=== PATIENT | female | born 1955 | race Two or more races ===

== ENCOUNTER 2024-12-21 14:54 | Inpatient (IN) | payer MEDICARE, OTHER ==
[~2024-12-21] VITALS: Ht 165.1 cm; Wt 94.1 kg
--- NOTE | 2024-12-21 15:14 | ED.PDOC ---
SOB-HPI HPI Comments This is a 69 year old female presenting to the ED with chief complaint of SOB. Patient reports that she has been experiencing SOB with associated wheezing, cough, and substernal chest pressure for the past 3 days due to asphalt being placed on her street in front of her home. Patient denies any dizziness, headache, syncope, hemoptysis, or fever. Chief Complaint: Shortness of Breath Time Seen by MD: 15:11 Reviewed notes: Nurses Notes, Medications, Allergies Information Source: Patient Mode of Arrival: Ambulatory Severity: Moderate Timing: Days Duration: Since onset Context: At Rest PE Risk Factors: None History of: Asthma Prehospital treatment: None Modifying Factors: Nothing Associated Signs and Symptoms: Wheeze, Cough, Chest Pain Quality: Pressure Location: Chest (L), Substernal If cough with SOB: Non-Productive Past Medical History PAST MEDICAL HISTORY: Asthma, Denies Surgical History: Denies all surgeries CUSTOM FRAMING SPECIALIST History: No Pertinent CUSTOM FRAMING SPECIALIST History Family History Family History: Reviewed,noncontributory to illness Social History Lives In: Home Constitutional: denies: chills, diaphoresis, fatigue, fever, malaise, sweats, weakness, others EENTM: denies: blurred vision, double vision, ear bleeding, ear discharge, ear drainage, ear pain, ear ringing, eye pain, eye redness, hearing loss, mouth pain, mouth swelling, nasal discharge, nose bleeding, nose congestion, nose pain, photophobia, tearing, throat pain, throat swelling, voice changes, others Respiratory: reports: cough, shortness of breath, wheezing; denies: hemoptysis, orthopnea, SOB at rest, SOB with excertion, stridor, others Cardiovascular: reports: chest pain; denies: dizzy spells, diaphoresis, Dyspnea on exertion, edema, irregular heart beat, left arm pain, lightheadedness, palpitations, PND, syncope, others Gastrointestinal: denies: abdomen distended, abdominal pain, blood streaked bowels, constipated, diarrhea, dysphagia, difficulty swallowing, hematemesis, melena, nausea, poor appetite, poor fluid intake, rectal bleeding, rectal pain, vomiting, others Genitourinary: denies: abnormal vagina bleeding, burning, dyspareunia, dysuria, flank pain, frequency, hematuria, incontinence, pain, , vagina discharge, urgency, others Neurological: denies: dizziness, fainting, headache, left sided numbness, left sided weakness, numbness, paresthesia, pre-existing deficit, right sided numbness, right sided weakness, seizure, speech problems, tingling, tremors, weakness, others Musculoskeletal: denies: back pain, gout, joint pain, joint swelling, muscle pain, muscle stiffness, neck pain, others Integumetry: denies: bruises, change in color, change in hair/nails, dryness, laceration, lesions, lumps, rash, wounds, others Allergic/Immunocompromised: denies: Difficulty Healing, Frequent Infections, Hives, Itching, others Hematologic/Lymphatic: denies: anemia, blood clots, easy bleeding, easy bruising, swollen glands, others Endocrine: denies: excessive hunger, excessive sweating, excessive thirst, excessive urination, flushing, intolerance to cold, intolerance to heat, unexplained weight gain, unexplained weight loss, others Psychiatric: denies: anxiety, bipolar disorder, depression, hopeless, panic disorder, schizophrenia, sleepless, suicidal, others All Other Systems: Reviewed and Negative Physical Exam General Appearance: No Apparent Distress, Normal HEENT: Normal ENT Inspection, Pharynx Normal, TMs Normal Neck: Full Range of Motion, Non-Tender, Normal, Normal Inspection Respiratory: Chest Non-Tender, Lungs Clear, No Accessory Muscle Use, No Respiratory Distress, Normal Breath Sounds Cardiovascular: No Edema, No JVD, No Murmur, No Gallop, Normal Peripheral Pulses, Regular Rate/Rhythm Breast Exam: Deferred Gastrointestinal: No Organomegaly, Non Tender, No Pulsatile Mass, Normal Bowel Sounds, Soft Genitalia: Deferred Pelvic: Deferred Rectal: Deferred Extremities: No calf tenderness, Normal capillary refill, Normal inspection, Normal range of motion, Non-tender, No pedal edema Musculoskeletal : Apperance: Normal Neurologic: Alert, assistant superintendent II-XII nml as Tested, No Motor Deficits, Normal Affect, Normal Mood, No Sensory Deficits Cerebellar Function: Normal Reflexes: Normal Skin: Dry, Normal Color, Warm Lymphatic: No Adenopathy Was a procedure done? Was a procedure done?: No Differential Dx Differential Diagnosis: Bronchitis, CHF, COPD, Pneumonia, Sinusitis X-Ray, Labs, Meds, VS Vital Signs Date Time Temp Pulse Resp B/P (MAP) Pulse Ox O2 Delivery O2 Flow Rate FiO2 10/8/25 16:00 86 12/21/24 15:40 87 20 97 Room Air* 2 N/A Nasal Cannula* 12/21/24 15:40 97 Nasal Cannula* 2 28 12/21/24 15:40 98.1 86 20 130/89 (103) 97 98.1 12/21/24 15:00 98.3 96 28 170/104 94 98.3 Lab Test 12/21/24 17:07 Range/Units White Blood Count 6.9 4.4-10.8 10^3/uL Red Blood Count 4.33 4.0-5.20 10^6/uL Hemoglobin 14.0 12.2-16.2 g/dL Hematocrit 41.7 36.0-46.0 % Mean Corpuscular Volume 96.2 80.0-100.0 fL Mean Corpuscular Hemoglobin 32.3 H 28.0-32.0 pg Mean Corpuscular Hemoglobin Concent 33.6 32.0-36.0 g/dL Red Cell Distribution Width 13.7 11.8-14.3 % Platelet Count 298 140-450 10^3/uL Mean Platelet Volume 7.7 6.9-10.8 fL Neutrophils (%) (Auto) 56.7 37.0-80.0 % Lymphocytes (%) (Auto) 26.6 10.0-50.0 % Monocytes (%) (Auto) 12.6 H 0.0-12.0 % Eosinophils (%) (Auto) 3.1 0.0-7.0 % Basophils (%) (Auto) 1.0 0.0-2.0 % Neutrophils # (Auto) 3.9 1.6-8.6 10 ^3/uL Lymphocytes # (Auto) 1.8 0.4-5.4 10 ^3/uL Monocytes # (Auto) 0.9 0-1.3 10 ^3/uL Eosinophils # (Auto) 0.2 0-0.8 10 ^3/uL Basophils # (Auto) 0.1 0-0.2 10 ^3/uL Nucleated Red Blood Cells 0.1 % Sodium Level 140 136-145 mmol/L Potassium Level 4.1 3.5-5.1 mmol/L Chloride Level 105 98-107 mmol/L Carbon Dioxide Level 22 20-31 mmol/L Anion Gap 13 5-15 Blood Urea Nitrogen 26 H 9-23 mg/dL Creatinine 0.99 0.550-1.02 mg/dL Glomerular Filtration Rate Calc 62 >90 mL/min BUN/Creatinine Ratio 26.3 H 10.0-20.0 Serum Glucose 96 74-106 mg/dL Calcium Level 9.9 8.7-10.4 mg/dL Troponin I High Sensitivity < 3 L </=34 ng/L Time of 1ST Reevaluation: 16:09 Reevaluation 1ST: Unchanged Patient Education/Counseling: Diagnosis, Treatment Family Education/Counseling: No Family Present SEPSIS Sepsis Screen Date sepsis recognized/suspect: Dec 21, 2024 Time Sepsis recognized/suspect: 1449 Recent Procedure: No On Antibiotic Therapy: No Respiratory Rate >20: Yes Heart Rate >90: Yes Temp<36 C (96.8 F) or >38.3 C: No SBP <90 or MAP <65 mmHG: No New Acute Mental Status Change: No Is the patient on CPAP, BIPAP,: No Physician Orders Urinalysis (12/21/24 15:39) Chest Portable (12/21/24 15:39) Electrocardigram (12/21/24 15:39) Troponin-I Hs (12/21/24 16:39) Troponin-I Hs (12/21/24 18:39) Electrocardigram (12/21/24 16:39) Electrocardigram (12/21/24 18:39) Vital Signs Date Time Temp Pulse Resp B/P (MAP) Pulse Ox O2 Delivery O2 Flow Rate FiO2 12/21/24 16:00 86 12/21/24 15:40 87 20 97 Room Air* 2 N/A Nasal Cannula* 12/21/24 15:40 97 Nasal Cannula* 2 28 12/21/24 15:40 98.1 86 20 130/89 (103) 97 98.1 12/21/24 15:00 98.3 96 28 170/104 94 98.3 Laboratory Tests Test 12/21/24 17:07 White Blood Count 6.9 10^3/uL (4.4-10.8) Departure 1 Departure Time of Disposition: 17:46 (Patient presented with acute shortness of breath concerning for acute on chronic COPD Exacerbation, Pneumonia, ACS, CHF, Pneumothorax. Less likely PE, Dissection. Data: 1. I ordered and reviewed the result of at least 3 labs including a CBC, BMP, and Troponin. 2. I independently interpreted the following tests: Chest X-ray shows benign chest .Risk:This patient has a high risk of morbidity due to further diagnostic testing or treatment and may suffer from respiratory or cardiac etiology . Workup reveals a likely COPD Exacerbation and patient should be admitted for further workup. and possible expert consultation.) Impression: Primary Impression: Acute and chronic respiratory failure Additional Impression: COPD exacerbation Disposition: ADMITTED INPATIENT Admit to: Tele Condition: Guarded Critical Care Note Critical Care Time?: Yes Critical care comment: Acute shortness of breath Authorized and Performed by: Katherine Vargas MD Total critical care time: Approximately 36 minutes Due to a high probability of clinically significant, life threatening deterioration, the patient required my highest level of preparedness to i ntervene emergently and I personally spent this critical care time directly and personally managing the patient. This critical care time included obtaining a history; examining the patient; pulse oximetry; ordering and review of studies; arranging urgent treatment with development of a management plan; evaluation of patient's response to treatment; frequent reassessment; and, discussions with other providers. This critical care time was performed to assess and manage the high probability of imminent, life-threatening deterioration that could result in multi-organ failure. It was exclusive of separately billable procedures and treating other patients and teaching time. Please see my other sections and the rest of the note for further information on patient assessment and treatment. Stability Stability form required: No Heart Score Heart Score: Heart Score Response (Comments) Value History N/A 0 EKG N/A 0 Age N/A 0 Risk Factors N/A 0 Troponin N/A 0 Total 0 I personally scribed for KATHERINE VARGAS MD ([email or web address]) on 12/21/24 at 15:14. Electronically submitted by Rigo Ordonez ([email or web address]). KATHERINE VARGAS MD Dec 21, 2024 15:14
[2024-12-21 15:40] VITALS: PULSE 87; RESP 20; O2SAT 97
--- NOTE | 2024-12-21 16:11 | DVH ---
CHEST RADIOGRAPH Indication: sob Technique: Single frontal view of the chest was obtained Comparison: None FINDINGS: Lines and Tubes: None Lungs: No focal consolidation. Pleura: No effusion. No pneumothorax. Cardiomediastinal contours: Unremarkable Bones: No acute osseous abnormality. IMPRESSION: 1. No acute cardiopulmonary disease.
[2024-12-21 17:22] LABS: Hematocrit 41.7 % (36.0-46.0); Hemoglobin 14.0 g/dL (12.2-16.2); Mean Corpuscular Hemoglobin 32.3 pg (28.0-32.0); Mean Corpuscular Volume 96.2 fL (80.0-100.0); Nucleated Red Blood Cells % 0.1 %
[2024-12-21 17:32] LABS: Chloride 105 mmol/L (98-107); Potassium 4.1 mmol/L (3.5-5.1); Sodium 140 mmol/L (136-145)
[2024-12-21 17:33] LABS: Anion Gap 13 (5-15); Carbon Dioxide 22 mmol/L (20-31)
[2024-12-21 17:34] LABS: Calcium 9.9 mg/dL (8.7-10.4)
[2024-12-21 17:38] LABS: Glucose 96 mg/dL (74-106)
[2024-12-21 17:39] LABS: BUN/Creatinine Ratio 26.3 (10.0-20.0)
[2024-12-21 17:43] LABS: Blood Urea Nitrogen 26 mg/dL (9-23)
[2024-12-21] MEDS: ALBUTEROL SULF 2.5 MG/0.5ML(0.5%) NEB SOLN NEB ONE (18:07)
[2024-12-21] MEDS: IPRATROPIUM BROM 0.5 MG/2.5ML INH SOL NEB ONE (18:07)
[2024-12-21] MEDS: AZITHROMYCIN 250 MG TAB PO ONE (18:12)
[2024-12-21] MEDS: methylPREDNISolone SOD SUCC 125 MG/2 ML VL IV ONE (18:13)
--- NOTE | 2024-12-21 19:24 | ECG ---
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
[2024-12-21 19:26] LABS: Urine Protein, UAD Negative (Negative)
[2024-12-21] MEDS ORDERED: ACETAMINOPHEN 325 MG TAB PO PRN (20:45)
[2024-12-21 22:08] VITALS: BP 126/66; PULSE 93; RESP 19; O2SAT 99
[2024-12-21 22:47] VITALS: BP 120/73; PULSE 88; RESP 19; TEMP 98; O2SAT 97
[2024-12-21 23:10] VITALS: PULSE 88; RESP 19; O2SAT 97
[2024-12-22] VITALS (13 sets, daily range): BP systolic 109–131; BP diastolic 59–73; PULSE 79–89; RESP 16–19; TEMP 87–98.2; O2SAT 93–99
[2024-12-22] MEDS ORDERED: LEVO-848 PO (00:29)
[2024-12-22] MEDS ORDERED: ALBUAER3 IN (00:29)
[2024-12-22] MEDS ORDERED: OMEP20TA PO (00:30)
[2024-12-22] MEDS: IPRATROPIUM BROM 0.5 MG/2.5ML INH SOL NEB PRN (00:51)
[2024-12-22] MEDS: ALBUTEROL SULF 2.5 MG/0.5ML(0.5%) NEB SOLN NEB PRN (00:51)
[2024-12-22] MEDS: NITROGLYCERIN 0.4 MG SL TAB SL PRN (02:51)
--- NOTE | 2024-12-22 02:53 | ECG ---
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
--- NOTE | 2024-12-22 04:12 | DVHHP2 ---
History of Present Illness Reason for Visit: Shortness for breath History of Present Illness 69-year-old female presents for evaluation of shortness for breath. Patient reports a three day history of developing shortness for breath. She states in front of her house there was some repairing done in her street. She states the smell of asphalt made her nauseous with shortness for breath. She reports using her med nebs without relief of the symptoms. Past Medical History Asthma Past Surgical History Denies Family History Noncontributory Smoke: No ALCOHOL: none Drugs: None Lives: with Family Review of Systems Review of Systems Review of systems are currently negative otherwise addressed in HPI. Allergies: Coded Allergies: Penicillins (Verified Allergy, Unknown, 12/21/24) Medications Current Medications Medications Dose Ordered Sig/Judit Route Start Time Stop Time Status Last Admin Dose Admin Nitroglycerin 0.4 mg Q5MINP PRN SL 12/21/24 20:00 12/22/24 02:51 0.4 MG Morphine Sulfate 2 mg Q30M PRN IV 12/21/24 20:30 Albuterol 2.5 mg Q6HPRN PRN NEB 12/21/24 20:45 12/22/24 00:51 2.5 MG Ipratropium [place] 0.5 mg Q6HPRN PRN NEB 12/21/24 20:45 12/22/24 00:51 0.5 MG Methylprednisolone Sodium Succinate 40 mg DAILY IV 12/22/24 10:00 Ondansetron HCl 4 mg Q4HP PRN IV 12/21/24 20:45 Acetaminophen 650 mg Q6HP PRN PO 12/21/24 20:45 Exam Vital Signs Vital Signs Date Time Temp Pulse Resp B/P (MAP) Pulse Ox O2 Delivery O2 Flow Rate FiO2 12/22/24 02:51 117/72 12/22/24 01:00 97.1 84 19 95 97.1 12/22/24 00:51 Nasal Cannula 2.0 12/22/24 00:51 28 Exam Gen: 69-year-old female in mild distress Skin: Warm, dry, normal color and texture, no rash. HEENT: Normocephalic atraumatic, mucous membranes moist and pink. Neck: Cervical and supraclavicular nodes normal without enlargement, trachea is midline, thyroid gland is normal without masses. Pulmonary: Diminished breath sounds bilaterally Cardiac: Regular rate and rhythm. No murmur Abdomen: Soft, nontender, nondistended, bowel sounds present all 4 quadrants, no guarding, no rigidity, no organomegaly. Extremities: No cyanosis, clubbing, no edema Neuro: Cranial nerves II through XII grossly intact, normal affect and speech, no focal motor deficits. Labs/Xrays ORDERING PHYSICIAN: KATHERINE DAVIDSON MD PROCEDURE(s): CXRP - CHEST PORTABLE REASON: sob ORDER NUMBER(s): [id number], ACCESSION NUMBER(s): [id number] CHEST RADIOGRAPH Indication: sob Technique: Single frontal view of the chest was obtained Comparison: None FINDINGS: Lines and Tubes: None Lungs: No focal consolidation. Pleura: No effusion. No pneumothorax. Cardiomediastinal contours: Unremarkable Bones: No acute osseous abnormality. IMPRESSION: 1. No acute cardiopulmonary disease. Labs Test 12/21/24 23:08 12/21/24 18:00 12/21/24 17:07 Range/Units Troponin I High Sensitivity < 3 L </=34 ng/L Urine Color Yellow Yellow Urine Clarity Clear Clear Urine pH 5.5 5.0-9.0 Urine Specific [place] 1.017 1.001-1.035 Urine Protein Negative Negative Urine Ketones Negative Negative Urine Blood Negative Negative /uL Urine Nitrite Negative Negative Urine Bilirubin Negative Negative Urine Urobilinogen Normal Negative mg/dL Urine Leukocyte Esterase Negative Negative /uL Urine RBC None seen 0 - 4 /hpf Urine Microscopic WBC 0-5 /HPF Urine Squamous Epithelial Cells Few <5 /hpf Urine Bacteria None seen None Seen /hpf Urine Glucose Normal Normal mg/dL White Blood Count 6.9 4.4-10.8 10^3/uL Red Blood Count 4.33 4.0-5.20 10^6/uL Hemoglobin 14.0 12.2-16.2 g/dL Hematocrit 41.7 36.0-46.0 % Mean Corpuscular Volume 96.2 80.0-100.0 fL Mean Corpuscular Hemoglobin 32.3 H 28.0-32.0 pg Mean Corpuscular Hemoglobin Concent 33.6 32.0-36.0 g/dL Red Cell Distribution Width 13.7 11.8-14.3 % Platelet Count 298 140-450 10^3/uL Mean Platelet Volume 7.7 6.9-10.8 fL Neutrophils (%) (Auto) 56.7 37.0-80.0 % Lymphocytes (%) (Auto) 26.6 10.0-50.0 % Monocytes (%) (Auto) 12.6 H 0.0-12.0 % Eosinophils (%) (Auto) 3.1 0.0-7.0 % Basophils (%) (Auto) 1.0 0.0-2.0 % Neutrophils # (Auto) 3.9 1.6-8.6 10 ^3/uL Lymphocytes # (Auto) 1.8 0.4-5.4 10 ^3/uL Monocytes # (Auto) 0.9 0-1.3 10 ^3/uL Eosinophils # (Auto) 0.2 0-0.8 10 ^3/uL Basophils # (Auto) 0.1 0-0.2 10 ^3/uL Nucleated Red Blood Cells 0.1 % Sodium Level 140 136-145 mmol/L Potassium Level 4.1 3.5-5.1 mmol/L Chloride Level 105 98-107 mmol/L Carbon Dioxide Level 22 20-31 mmol/L Anion Gap 13 5-15 Blood Urea Nitrogen 26 H 9-23 mg/dL Creatinine 0.99 0.550-1.02 mg/dL Glomerular Filtration Rate Calc 62 >90 mL/min BUN/Creatinine Ratio 26.3 H 10.0-20.0 Serum Glucose 96 74-106 mg/dL Calcium Level 9.9 8.7-10.4 mg/dL SEPSIS Sepsis Screen Date sepsis recognized/suspect: Dec 21, 2024 Time Sepsis recognized/suspect: 1540 Recent Procedure: No On Antibiotic Therapy: No Respiratory Rate >20: No Heart Rate >90: No Temp<36 C (96.8 F) or >38.3 C: No SBP <90 or MAP <65 mmHG: No New Acute Mental Status Change: No Is the patient on CPAP, BIPAP,: No Physician Orders Albuterol Medneb (Ventolin Medneb) (12/21/24 20:45) Ipratropium Medneb (Atrovent Medneb) (12/21/24 20:45) Methylprednisolone Sod Succ (Solu Medrol (12/22/24 10:00) Basic Metabolic Panel (12/22/24 04:00) Regular Diet (12/22/24 Breakfast) Ondansetron Hcl (Zofran) (12/21/24 20:45) Condition: Stable (12/21/24 20:38) Acetaminophen Tablet (Tylenol Tablet) (12/21/24 20:45) Bedrest With Bathroom Privileg (12/21/24 20:38) Electrocardigram (12/22/24 02:22) Electrocardigram (12/22/24 03:22) Vital Signs Date Time Temp Pulse Resp B/P (MAP) Pulse Ox O2 Delivery O2 Flow Rate FiO2 12/22/24 02:51 117/72 12/22/24 01:00 97.1 84 19 130/69 (89) 95 97.1 12/22/24 00:57 89 16 99 12/22/24 00:51 96 Nasal Cannula 2.0 12/22/24 00:51 89 16 96 12/22/24 00:51 96 Nasal Cannula* 2 28 12/21/24 23:10 88 19 97 Nasal Cannula* 2 28 12/21/24 22:47 98.0 88 19 120/73 (89) 97 98.0 12/21/24 22:08 93 19 126/66 99 2.0 12/21/24 21:09 148 12/21/24 21:00 87 24 109/68 (82) 97 Laboratory Tests Test 12/21/24 17:07 White Blood Count 6.9 10^3/uL (4.4-10.8) Medications Medications Dose Ordered Sig/Judit Route Start Time Stop Time Status Last Admin Dose Admin Albuterol 2.5 mg Q6HPRN PRN NEB 12/21/24 20:45 12/22/24 00:51 2.5 MG Albuterol 5 mg ONCE ONCE NEB 12/21/24 18:00 12/21/24 18:01 DC 12/21/24 18:07 5 MG Azithromycin 500 mg ONCE ONCE PO 12/21/24 18:00 12/21/24 18:01 DC 12/21/24 18:12 500 MG Ipratropium [place] 0.5 mg ONCE ONCE NEB 12/21/24 18:00 12/21/24 18:01 DC 12/21/24 18:07 0.5 MG Ipratropium [place] 0.5 mg Q6HPRN PRN NEB 12/21/24 20:45 12/22/24 00:51 0.5 MG Methylprednisolone Sodium Succinate 62.5 mg ONCE ONCE IV 12/21/24 18:00 12/21/24 18:01 DC 12/21/24 18:13 62.5 MG Nitroglycerin 0.4 mg Q5MINP PRN SL 12/21/24 20:00 12/22/24 02:51 0.4 MG Assessment/Plan Assessment/Plan Assessment Acute on chronic hypoxic respiratory failure Asthma exacerbation Plan Admit the patient to telemetry to the hospitalist Lucian hanley Methylprednisone Continue treatment per orders. Plan discussed with: Patient My Orders Orders - MILAGRO PEDRO Procedure Category Date Status Time Admit ADMIT 12/21/24 Transmitted 19:57 Nitroglycerin PHA 12/21/24 In Process Sublingual (Ntrostat 20:00 Stat Ekg For Chest KERRIE 12/21/24 In Process Pain 19:57 Notify Of Changes [facility] 12/21/24 In Process From Base 19:57 Medium Cycle Salesperson For [facility] 12/21/24 In Process 24 Hours 19:57 Emergency Dysrhythmia [facility] 12/21/24 In Process Protocol 19:57 Rhythm Strips Once [facility] 12/21/24 In Process Every Shift 19:57 Oxygen By Nasal RT 12/21/24 Transmitted Cannula 19:57 Morphine Sulfate PHA 12/21/24 In Process Injection 20:30 Albuterol Medneb PHA 12/21/24 In Process (Ventolin Medneb) 20:45 Ipratropium Medneb PHA 12/21/24 In Process (Atrovent Medneb) 20:45 Methylprednisolone PHA 12/22/24 In Process Sod Succ (Solu Medrol 10:00 Basic Metabolic Panel LAB 12/22/24 Logged 04:00 Regular Diet DIET 12/22/24 Transmitted Breakfast Ondansetron Hcl PHA 12/21/24 In Process (Zofran) 20:45 Condition: Stable KERRIE 12/21/24 In Process 20:38 Acetaminophen Tablet PHA 12/21/24 In Process (Tylenol Tablet) 20:45 Bedrest With Bathroom KERRIE 12/21/24 In Process Privileg 20:38 Electrocardigram EKG 12/22/24 Logged 02:22 Electrocardigram EKG 12/22/24 Logged 03:22 Date of Service: Dec 21, 2024 Billing Provider: MILAGRO PEDRO Common Visit Codes: [id number] INP/OBS CARE (HIGH) MILAGRO PEDRO Dec 22, 2024 04:12
--- NOTE | 2024-12-22 06:25 | ECG ---
[facility] Test Date: 2024-12-22 Test Time: 06:23:27 Pat Name: ESTEFANI MCPHERSON [facility] Gender: F Network Admin: [id number] : 1955 Requested By: MILAGRO PEDRO Order Number: [id number] Reading MD: Kareem Chisholm Measurements Intervals [place] Rate: 88 P: 41 CT: 147 QRS: 10 QRSD: 78 T: 30 QT: 362 QTc: 438 Interpretive Statements Sinus rhythm Probable left atrial enlargement Electronically Signed On 12-24-2024 19:45:40 PDT by Kareem Chisholm Please click the below link to view image of tracing.
[2024-12-22] MEDS: MORPHINE SULFATE 4 MG/ML SYR/VIAL IV PRN (06:47)
[2024-12-22 07:13] LABS: Anion Gap 14 (5-15); Carbon Dioxide 20 mmol/L (20-31); Chloride 105 mmol/L (98-107); Potassium 5.0 mmol/L (3.5-5.1); Sodium 139 mmol/L (136-145)
[2024-12-22 07:14] LABS: Calcium 10.0 mg/dL (8.7-10.4)
[2024-12-22 07:19] LABS: BUN/Creatinine Ratio 25.5 (10.0-20.0); Blood Urea Nitrogen 25 mg/dL (9-23); Glucose 136 mg/dL (74-106)
[2024-12-22] MEDS: methylPREDNISolone SOD SUCC 40 MG/ML VL IV SCH ×2 (09:29→21:02)
[2024-12-22] MEDS ORDERED: BUPR-346 PO (09:33)
[2024-12-22] MEDS ORDERED: LISI20TA56 PO (09:33)
[2024-12-22] MEDS ORDERED: NAP500T GT (09:36)
--- NOTE | 2024-12-22 13:03 | DVHPN2 ---
Subjective 69-year-old female who was admitted for acute respiratory failure She has a history of asthma Changes from previous H/P or p: Changes Objective Vitals Vital Signs Date Time Temp Pulse Resp B/P (MAP) Pulse Ox O2 Delivery O2 Flow Rate FiO2 12/22/24 10:46 82 16 98 12/22/24 10:40 Room Air* 0 21 12/22/24 09:24 98.1 124/60 (81) 98.1 Intake/Output Intake and Output 12/22/24 07:00 Intake Total 440 ml Balance 440 ml Intake Oral 440 ml # Voids 1 General Appearance: Alert, Oriented X3, Cooperative Lungs: Other (Bilateral wheezing) Cardiovascular: Regular rate, Normal S1, Normal S2 Abdomen: Normal bowel sounds, Soft, No tenderness Extremities: No edema Medications Current Medications Medications Dose Ordered Sig/Judit Route Start Time Stop Time Status Last Admin Dose Admin Nitroglycerin 0.4 mg Q5MINP PRN SL 12/21/24 20:00 12/22/24 02:51 0.4 MG Morphine Sulfate 2 mg Q30M PRN IV 12/21/24 20:30 12/22/24 06:47 2 MG Albuterol 2.5 mg Q6HPRN PRN NEB 12/21/24 20:45 12/22/24 10:41 2.5 MG Ipratropium [place] 0.5 mg Q6HPRN PRN NEB 12/21/24 20:45 12/22/24 10:41 0.5 MG Methylprednisolone Sodium Succinate 40 mg DAILY IV 12/22/24 10:00 12/22/24 09:29 40 MG Ondansetron HCl 4 mg Q4HP PRN IV 12/21/24 20:45 Acetaminophen 650 mg Q6HP PRN PO 12/21/24 20:45 Laboratory Results Laboratory Tests 12/21/24 17:07 12/22/24 04:50 Chemistry Test 12/21/24 17:07 12/22/24 04:50 Calcium Level 9.9 mg/dL (8.7-10.4) 10.0 mg/dL (8.7-10.4) Urinalysis Test 12/21/24 18:00 Urine Color Yellow (Yellow) Urine Clarity Clear (Clear) Urine pH 5.5 (5.0-9.0) Urine Specific [place] 1.017 (1.001-1.035) Urine Protein Negative (Negative) Urine Ketones Negative (Negative) Urine Blood Negative /uL (Negative) Urine Nitrite Negative (Negative) Urine Bilirubin Negative (Negative) Urine Urobilinogen Normal mg/dL (Negative) Urine Leukocyte Esterase Negative /uL (Negative) Urine RBC None seen /hpf (0 - 4) Urine Microscopic WBC /HPF (0-5) Urine Squamous Epithelial Cells Few /hpf (<5) Urine Bacteria None seen /hpf (None Seen) Urine Glucose Normal mg/dL (Normal) Assessment/Plan Assessment/Plan Acute hypoxic respiratory failure Asthma exacerbation Chronic respiratory failure No home O2 History of asthma No pneumonia Plan Continue IV steroids Add Zithromax IV Oxygen as needed Med neb treatments as needed Full code Plan discussed with: Patient Date of Service: Dec 22, 2024 Billing Provider: KATY RESENDIZ MD Common Visit Codes: NOT BILLABLE KATY RESENDIZ MD Dec 22, 2024 13:03
[2024-12-22] MEDS: AZITHROMYCIN 500MG/ 250ML 250 ML IV ONE (13:15)
[2024-12-22] MEDS: PANTOPRAZOLE 40 MG TAB PO ONE (18:54)
[2024-12-22] MEDS: diphenhydrAMINE HCL 50 MG/1 ML VL IV PRN (21:03)
[2024-12-23] VITALS (10 sets, daily range): BP systolic 123–151; BP diastolic 63–92; PULSE 63–91; RESP 16–20; TEMP 97.7–98.6; O2SAT 95–98
[2024-12-23] MEDS: PANTOPRAZOLE 40 MG TAB PO SCH (05:41)
[2024-12-23] MEDS: AZITHROMYCIN 500MG/ 250ML 250 ML IV SCH (10:00)
[2024-12-23] MEDS ORDERED: NAPROXEN 500 MG TAB PO PRN (16:15)
--- NOTE | 2024-12-23 16:52 | DVHPN2 ---
Subjective Patient is here for acute hypoxic respiratory failure secondary to acute asthma exacerbation Changes from previous H/P or p: No Changes Objective Vitals Vital Signs Date Time Temp Pulse Resp B/P (MAP) Pulse Ox O2 Delivery O2 Flow Rate FiO2 12/23/24 13:00 98.3 75 16 139/71 (93) 98 98.3 12/23/24 08:00 Nasal Cannula* 2 28 Intake/Output Intake and Output 12/23/24 07:00 Intake Total 1455 ml Balance 1455 ml Intake Oral 1455 ml # Voids 11 # Bowel Movements 4 Exam HEENT pupils are reactive Neck is supple CV is S1-S2 regular rate and rhythm Respiratory bilateral expiratory rhonchi GI positive bowel sound Extremity no 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 General Appearance: Alert, Oriented X3, Cooperative Lungs: Other (Bilateral wheezing) Cardiovascular: Regular rate, Normal S1, Normal S2 Abdomen: Normal bowel sounds, Soft, No tenderness Extremities: No edema Medications Current Medications Medications Dose Ordered Sig/Judit Route Start Time Stop Time Status Last Admin Dose Admin Nitroglycerin 0.4 mg Q5MINP PRN SL 12/21/24 20:00 12/22/24 14:41 0.4 MG Morphine Sulfate 2 mg Q30M PRN IV 12/21/24 20:30 12/22/24 06:47 2 MG Albuterol 2.5 mg Q6HPRN PRN NEB 12/21/24 20:45 12/22/24 20:37 2.5 MG Ipratropium [place] 0.5 mg Q6HPRN PRN NEB 12/21/24 20:45 12/22/24 20:37 0.5 MG Ondansetron HCl 4 mg Q4HP PRN IV 12/21/24 20:45 Acetaminophen 650 mg Q6HP PRN PO 12/21/24 20:45 Methylprednisolone Sodium Succinate 40 mg Q12H IV 12/22/24 22:00 12/23/24 10:33 40 MG Azithromycin 250 ml @ 125 mls/hr DAILY IV 12/23/24 10:00 Pantoprazole Sodium 40 mg DAILY@0600 PO 12/23/24 06:00 12/23/24 05:41 40 MG Diphenhydramine HCl 25 mg Q4HP PRN IV 12/22/24 20:30 12/23/24 10:34 25 MG Naproxen 500 mg Q12HP PRN PO 12/23/24 16:15 Laboratory Results Laboratory Tests 12/21/24 17:07 12/22/24 04:50 Urinalysis Test 12/21/24 18:00 Urine Color Yellow (Yellow) Urine Clarity Clear (Clear) Urine pH 5.5 (5.0-9.0) Urine Specific [place] 1.017 (1.001-1.035) Urine Protein Negative (Negative) Urine Ketones Negative (Negative) Urine Blood Negative /uL (Negative) Urine Nitrite Negative (Negative) Urine Bilirubin Negative (Negative) Urine Urobilinogen Normal mg/dL (Negative) Urine Leukocyte Esterase Negative /uL (Negative) Urine RBC None seen /hpf (0 - 4) Urine Microscopic WBC /HPF (0-5) Urine Squamous Epithelial Cells Few /hpf (<5) Urine Bacteria None seen /hpf (None Seen) Urine Glucose Normal mg/dL (Normal) Assessment/Plan Assessment/Plan 69-year-old female with the increasing shortness of breaths for last few days found to have 1. Acute hypoxic respiratory failure secondary to acute asthma exacerbation 2. Acute asthma exacerbation 3. Chest pain secondary to above 4. Morbid obesity classI -pain meds as needed, med nebs, increase Solu-Medrol as patient's has diminished breath sounds with expiratory wheezes on current dose. Plan discussed with: Patient My Orders Orders - FABI LING MD Procedure Category Date Status Time Insert Midline ORDERS 12/23/24 Transmitted 15:19 Naproxen Tablet PHA 12/23/24 In Process (Naprosyn Tablet) 16:15 Methylprednisolone PHA 12/23/24 Logged Sod Succ (Solu Medrol 22:00 Morphine Sulfate PHA 12/23/24 Transmitted Injection 17:00 Hydrocodone-Acet PHA 12/23/24 Transmitted 5/325mg Tab ([place] 17:00 Date of Service: Dec 23, 2024 Billing Provider: FABI LING MD Common Visit Codes: [id number] INP/OBS CARE(HIGH) FABI LING MD Dec 23, 2024 16:52
[2024-12-23] MEDS: HYDROcodone-ACET 5/325MG TAB PO PRN (17:00)
[2024-12-23] MEDS ORDERED: MORPHINE SULFATE 4 MG/ML SYR/VIAL IV PRN (17:00)
[2024-12-23] MEDS: methylPREDNISolone SOD SUCC 125 MG/2 ML VL IV SCH (21:43)
[2024-12-24] VITALS (15 sets, daily range): BP systolic 105–142; BP diastolic 56–83; PULSE 69–89; RESP 16–20; TEMP 97.9–98.5; O2SAT 92–99
--- NOTE | 2024-12-24 18:42 | DVHPN2 ---
Subjective Patient is here for acute hypoxic respiratory failure secondary to acute asthma exacerbation Changes from previous H/P or p: No Changes Objective Vitals Vital Signs Date Time Temp Pulse Resp B/P (MAP) Pulse Ox O2 Delivery O2 Flow Rate FiO2 12/24/24 16:56 98.1 72 18 127/66 (86) 93 98.1 12/24/24 09:41 Room Air 0.0 12/24/24 09:41 21 Intake/Output Intake and Output 12/24/24 07:00 Intake Total 2250 ml Balance 2250 ml Intake Oral 2250 ml # Voids 11 # Bowel Movements 4 Exam HEENT pupils are reactive Neck is supple CV is S1-S2 regular rate and rhythm Respiratory bilateral expiratory rhonchi GI positive bowel sound Extremity no edema 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 General Appearance: Alert, Oriented X3, Cooperative Lungs: Other (Bilateral wheezing) Cardiovascular: Regular rate, Normal S1, Normal S2 Abdomen: Normal bowel sounds, Soft, No tenderness Extremities: No edema Medications Current Medications Medications Dose Ordered Sig/Judit Route Start Time Stop Time Status Last Admin Dose Admin Nitroglycerin 0.4 mg Q5MINP PRN SL 12/21/24 20:00 12/22/24 14:41 0.4 MG Morphine Sulfate 2 mg Q30M PRN IV 12/21/24 20:30 12/22/24 06:47 2 MG Albuterol 2.5 mg Q6HPRN PRN NEB 12/21/24 20:45 12/24/24 09:41 2.5 MG Ipratropium [place] 0.5 mg Q6HPRN PRN NEB 12/21/24 20:45 12/24/24 09:41 0.5 MG Ondansetron HCl 4 mg Q4HP PRN IV 12/21/24 20:45 Acetaminophen 650 mg Q6HP PRN PO 12/21/24 20:45 Azithromycin 250 ml @ 125 mls/hr DAILY IV 12/23/24 10:00 12/24/24 10:16 125 MLS/HR Pantoprazole Sodium 40 mg DAILY@0600 PO 12/23/24 06:00 12/24/24 05:49 40 MG Diphenhydramine HCl 25 mg Q4HP PRN IV 12/22/24 20:30 12/24/24 10:16 25 MG Naproxen 500 mg Q12HP PRN PO 12/23/24 16:15 Methylprednisolone Sodium Succinate 60 mg Q8HR IV 12/23/24 22:00 12/24/24 14:55 60 MG Morphine Sulfate 2 mg Q4HR PRN IV 12/23/24 17:00 Acetaminophen/ Hydrocodone Bitart 1 tab Q4HPRN PRN PO 12/23/24 17:00 12/24/24 16:01 1 TAB Laboratory Results Laboratory Tests 12/21/24 17:07 12/22/24 04:50 Urinalysis Test 12/21/24 18:00 Urine Color Yellow (Yellow) Urine Clarity Clear (Clear) Urine pH 5.5 (5.0-9.0) Urine Specific [place] 1.017 (1.001-1.035) Urine Protein Negative (Negative) Urine Ketones Negative (Negative) Urine Blood Negative /uL (Negative) Urine Nitrite Negative (Negative) Urine Bilirubin Negative (Negative) Urine Urobilinogen Normal mg/dL (Negative) Urine Leukocyte Esterase Negative /uL (Negative) Urine RBC None seen /hpf (0 - 4) Urine Microscopic WBC /HPF (0-5) Urine Squamous Epithelial Cells Few /hpf (<5) Urine Bacteria None seen /hpf (None Seen) Urine Glucose Normal mg/dL (Normal) Assessment/Plan Assessment/Plan 69-year-old female with the increasing shortness of breaths for last few days found to have 1. Acute hypoxic respiratory failure secondary to acute asthma exacerbation 2. Acute asthma exacerbation 3. Chest pain secondary to above 4. Morbid obesity classI -pain meds as needed, med nebs, increase Solu-Medrol as patient's has diminished breath sounds with expiratory wheezes . Plan discussed with: Patient Date of Service: Dec 24, 2024 Billing Provider: FABI LING MD Common Visit Codes: [id number] INP/OBS CARE(HIGH) FABI LING MD Dec 24, 2024 18:42
[2024-12-25] VITALS (13 sets, daily range): BP systolic 101–159; BP diastolic 56–76; PULSE 63–93; RESP 16–20; TEMP 97.7–98.6; O2SAT 90–99
--- NOTE | 2024-12-25 14:17 | DVH ---
CHEST RADIOGRAPH Indication: re-evaluation due to coarse lung sounds Technique: Single frontal view of the chest was obtained Comparison: XY CHEST PORTABLE on DOS: 12/21/24 FINDINGS: Lines and Tubes: None Lungs: No focal consolidation. Pleura: No effusion. No pneumothorax. Cardiomediastinal contours: Unremarkable Bones: No acute osseous abnormality. IMPRESSION: 1. No acute cardiopulmonary disease. 2. No significant change from 12/21/2024.
--- NOTE | 2024-12-25 18:16 | DVHPN2 ---
Subjective Patient is here for acute hypoxic respiratory failure secondary to acute asthma exacerbation Changes from previous H/P or p: No Changes Objective Vitals Vital Signs Date Time Temp Pulse Resp B/P (MAP) Pulse Ox O2 Delivery O2 Flow Rate FiO2 12/25/24 16:43 98.5 72 18 159/65 (96) 90 98.5 12/25/24 08:12 Nasal Cannula* 3 32 Intake/Output Intake and Output 12/25/24 07:00 Intake Total 1990 ml Balance 1990 ml Intake Oral 1740 ml IV Total 250 ml # Voids 14 # Bowel Movements 4 Exam HEENT pupils are reactive Neck is supple CV is S1-S2 regular rate and rhythm Respiratory bilateral expiratory rhonchi GI positive bowel sound 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 General Appearance: Alert, Oriented X3, Cooperative Lungs: Other (Bilateral wheezing) Cardiovascular: Regular rate, Normal S1, Normal S2 Abdomen: Normal bowel sounds, Soft, No tenderness Extremities: No edema Medications Current Medications Medications Dose Ordered Sig/Judit Route Start Time Stop Time Status Last Admin Dose Admin Nitroglycerin 0.4 mg Q5MINP PRN SL 12/21/24 20:00 12/22/24 14:41 0.4 MG Morphine Sulfate 2 mg Q30M PRN IV 12/21/24 20:30 12/22/24 06:47 2 MG Albuterol 2.5 mg Q6HPRN PRN NEB 12/21/24 20:45 12/25/24 06:40 2.5 MG Ipratropium [place] 0.5 mg Q6HPRN PRN NEB 12/21/24 20:45 12/25/24 06:27 0.5 MG Ondansetron HCl 4 mg Q4HP PRN IV 12/21/24 20:45 Acetaminophen 650 mg Q6HP PRN PO 12/21/24 20:45 Azithromycin 250 ml @ 125 mls/hr DAILY IV 12/23/24 10:00 12/25/24 09:20 125 MLS/HR Pantoprazole Sodium 40 mg DAILY@0600 PO 12/23/24 06:00 12/25/24 05:35 40 MG Diphenhydramine HCl 25 mg Q4HP PRN IV 12/22/24 20:30 12/25/24 13:59 25 MG Naproxen 500 mg Q12HP PRN PO 12/23/24 16:15 Methylprednisolone Sodium Succinate 60 mg Q8HR IV 12/23/24 22:00 12/25/24 13:59 60 MG Morphine Sulfate 2 mg Q4HR PRN IV 12/23/24 17:00 Acetaminophen/ Hydrocodone Bitart 1 tab Q4HPRN PRN PO 12/23/24 17:00 12/25/24 17:28 1 TAB Budesonide 0.5 mg BID NEB 12/25/24 22:00 Levothyroxine Sodium 50 mcg QAM@0600 PO 12/26/24 06:00 Laboratory Results Laboratory Tests 12/21/24 17:07 12/22/24 04:50 Urinalysis Test 12/21/24 18:00 Urine Color Yellow (Yellow) Urine Clarity Clear (Clear) Urine pH 5.5 (5.0-9.0) Urine Specific [place] 1.017 (1.001-1.035) Urine Protein Negative (Negative) Urine Ketones Negative (Negative) Urine Blood Negative /uL (Negative) Urine Nitrite Negative (Negative) Urine Bilirubin Negative (Negative) Urine Urobilinogen Normal mg/dL (Negative) Urine Leukocyte Esterase Negative /uL (Negative) Urine RBC None seen /hpf (0 - 4) Urine Microscopic WBC /HPF (0-5) Urine Squamous Epithelial Cells Few /hpf (<5) Urine Bacteria None seen /hpf (None Seen) Urine Glucose Normal mg/dL (Normal) Assessment/Plan Assessment/Plan 69-year-old female with the increasing shortness of breaths for last few days found to have 1. Acute hypoxic respiratory failure secondary to acute asthma exacerbation 2. Acute asthma exacerbation 3. Chest pain secondary to above 4. Morbid obesity classI 5. Hypothyroidism, resume levothyroxine -pain meds as needed, med nebs, increase Solu-Medrol as patient's has diminished breath sounds with expiratory wheezes . -add Pulmicort Plan discussed with: Patient My Orders Orders - FABI LING MD Procedure Category Date Status Time Chest Xray 1 View XY 12/25/24 Resulted 11:04 Budesonide PHA 12/25/24 In Process (Inhalation) 22:00 Levothyroxine Tablet PHA 12/26/24 In Process (Synthroid Tablet) 06:00 Date of Service: Dec 25, 2024 Billing Provider: FABI LING MD Common Visit Codes: [id number] INP/OBS CARE(HIGH) FABI LING MD Dec 25, 2024 18:16
[2024-12-25] MEDS: LEVOTHYROXINE SODIUM 50 MCG TAB PO ONE (18:42)
[2024-12-25] MEDS: BUDESONIDE (INHALATION) 0.5 MG/2 ML NEB NEB SCH (19:06)
[2024-12-26] VITALS (13 sets, daily range): BP systolic 119–149; BP diastolic 58–81; PULSE 63–87; RESP 14–20; TEMP 97.8–98.4; O2SAT 92–99
[2024-12-26] MEDS: LEVOTHYROXINE SODIUM 50 MCG TAB PO SCH (05:38)
--- NOTE | 2024-12-26 16:52 | DVHPN2 ---
Subjective Patient is here for acute hypoxic respiratory failure secondary to acute asthma exacerbation Changes from previous H/P or p: No Changes Objective Vitals Vital Signs Date Time Temp Pulse Resp B/P (MAP) Pulse Ox O2 Delivery O2 Flow Rate FiO2 12/26/24 13:00 98.1 77 16 122/58 (79) 95 98.1 12/26/24 10:28 Nasal Cannula* 2 28 Intake/Output Intake and Output 12/26/24 07:00 Intake Total 3000 ml Output Total 1500 ml Balance 1500 ml Intake Oral 3000 ml Output Urine Total 1500 ml # Voids 6 # Bowel Movements 6 Exam HEENT pupils are reactive Neck is supple CV is S1-S2 regular rate and rhythm Respiratory bilateral expiratory rhonchi GI positive bowel sound 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 General Appearance: Alert, Oriented X3, Cooperative Lungs: Other (Bilateral wheezing) Cardiovascular: Regular rate, Normal S1, Normal S2 Abdomen: Normal bowel sounds, Soft, No tenderness Extremities: No edema Medications Current Medications Medications Dose Ordered Sig/Judit Route Start Time Stop Time Status Last Admin Dose Admin Nitroglycerin 0.4 mg Q5MINP PRN SL 12/21/24 20:00 12/22/24 14:41 0.4 MG Morphine Sulfate 2 mg Q30M PRN IV 12/21/24 20:30 12/22/24 06:47 2 MG Albuterol 2.5 mg Q6HPRN PRN NEB 12/21/24 20:45 12/26/24 10:24 2.5 MG Ipratropium [place] 0.5 mg Q6HPRN PRN NEB 12/21/24 20:45 12/26/24 10:24 0.5 MG Ondansetron HCl 4 mg Q4HP PRN IV 12/21/24 20:45 Acetaminophen 650 mg Q6HP PRN PO 12/21/24 20:45 Azithromycin 250 ml @ 125 mls/hr DAILY IV 12/23/24 10:00 12/26/24 10:28 125 MLS/HR Pantoprazole Sodium 40 mg DAILY@0600 PO 12/23/24 06:00 12/26/24 05:38 40 MG Diphenhydramine HCl 25 mg Q4HP PRN IV 12/22/24 20:30 12/26/24 15:27 25 MG Naproxen 500 mg Q12HP PRN PO 12/23/24 16:15 Methylprednisolone Sodium Succinate 60 mg Q8HR IV 12/23/24 22:00 12/26/24 15:28 60 MG Morphine Sulfate 2 mg Q4HR PRN IV 12/23/24 17:00 Acetaminophen/ Hydrocodone Bitart 1 tab Q4HPRN PRN PO 12/23/24 17:00 12/26/24 09:19 1 TAB Budesonide 0.5 mg BID NEB 12/25/24 22:00 12/26/24 10:24 0.5 MG Levothyroxine Sodium 50 mcg QAM@0600 PO 12/26/24 06:00 12/26/24 05:38 50 MCG Laboratory Results Laboratory Tests 12/21/24 17:07 12/22/24 04:50 Urinalysis Test 12/21/24 18:00 Urine Color Yellow (Yellow) Urine Clarity Clear (Clear) Urine pH 5.5 (5.0-9.0) Urine Specific [place] 1.017 (1.001-1.035) Urine Protein Negative (Negative) Urine Ketones Negative (Negative) Urine Blood Negative /uL (Negative) Urine Nitrite Negative (Negative) Urine Bilirubin Negative (Negative) Urine Urobilinogen Normal mg/dL (Negative) Urine Leukocyte Esterase Negative /uL (Negative) Urine RBC None seen /hpf (0 - 4) Urine Microscopic WBC /HPF (0-5) Urine Squamous Epithelial Cells Few /hpf (<5) Urine Bacteria None seen /hpf (None Seen) Urine Glucose Normal mg/dL (Normal) Assessment/Plan Assessment/Plan 69-year-old female with the increasing shortness of breaths for last few days found to have 1. Acute hypoxic respiratory failure secondary to acute asthma exacerbation 2. Acute asthma exacerbation 3. Chest pain secondary to above 4. Morbid obesity classI 5. Hypothyroidism, resume levothyroxine -pain meds as needed, med nebs, increase Solu-Medrol as patient's has diminished breath sounds with expiratory wheezes . -add Pulmicort Plan discussed with: Patient My Orders Orders - FABI LING MD Procedure Category Date Status Time Levothyroxine Tablet PHA 12/26/24 In Process (Synthroid Tablet) 06:00 * Line Person CONS 12/26/24 Transmitted Consult 09:05 Date of Service: Dec 26, 2024 Billing Provider: FABI LING MD Common Visit Codes: [id number] INP/OBS CARE(HIGH) FABI LING MD Dec 26, 2024 16:52
[2024-12-27] VITALS (13 sets, daily range): BP systolic 139–152; BP diastolic 66–87; PULSE 63–131; RESP 16–23; TEMP 97.6–98.8; O2SAT 93–100
--- NOTE | 2024-12-27 08:07 | ECG ---
[facility] Test Date: 2024-12-21 Test Time: 21:09:08 Pat Name: ESTEFANI MCPHERSON [facility] Director Gift: KATT : 1955 Requested By: KATHERINE DAVIDSON Order Number: [id number] Reading MD: Kareem Chisholm Measurements Intervals [place] Rate: 148 P: 0 VT: 0 QRS: 23 QRSD: 72 T: 18 QT: 310 QTc: 487 Interpretive Statements Atrial fibrillation Low voltage, precordial leads ST depression, probably rate related Borderline prolonged QT interval Electronically Signed On 12-27-2024 15:07:06 PDT by Kareem Chisholm Please click the below link to view image of tracing.
--- NOTE | 2024-12-27 18:45 | DVHPN2 ---
Subjective Patient is here for acute hypoxic respiratory failure secondary to acute asthma exacerbation Changes from previous H/P or p: No Changes Objective Vitals Vital Signs Date Time Temp Pulse Resp B/P (MAP) Pulse Ox O2 Delivery O2 Flow Rate FiO2 12/27/24 16:49 98.7 82 18 139/85 (103) 94 98.7 12/27/24 15:01 Room Air* 0 21 Intake/Output Intake and Output 12/27/24 07:00 Intake Total 2450 ml Balance 2450 ml Intake Oral 2200 ml IV Total 250 ml # Voids 8 # Bowel Movements 2 Exam HEENT pupils are reactive Neck is supple CV is S1-S2 regular rate and rhythm Respiratory bilateral expiratory rhonchi GI positive bowel sound 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 General Appearance: Alert, Oriented X3, Cooperative Lungs: Other (Bilateral wheezing) Cardiovascular: Regular rate, Normal S1, Normal S2 Abdomen: Normal bowel sounds, Soft, No tenderness Extremities: No edema Medications Current Medications Medications Dose Ordered Sig/Judit Route Start Time Stop Time Status Last Admin Dose Admin Nitroglycerin 0.4 mg Q5MINP PRN SL 12/21/24 20:00 12/22/24 14:41 0.4 MG Morphine Sulfate 2 mg Q30M PRN IV 12/21/24 20:30 12/22/24 06:47 2 MG Albuterol 2.5 mg Q6HPRN PRN NEB 12/21/24 20:45 12/27/24 15:00 2.5 MG Ipratropium [place] 0.5 mg Q6HPRN PRN NEB 12/21/24 20:45 12/27/24 15:00 0.5 MG Ondansetron HCl 4 mg Q4HP PRN IV 12/21/24 20:45 Acetaminophen 650 mg Q6HP PRN PO 12/21/24 20:45 Azithromycin 250 ml @ 125 mls/hr DAILY IV 12/23/24 10:00 12/27/24 09:45 125 MLS/HR Pantoprazole Sodium 40 mg DAILY@0600 PO 12/23/24 06:00 12/27/24 05:19 40 MG Diphenhydramine HCl 25 mg Q4HP PRN IV 12/22/24 20:30 12/27/24 09:45 25 MG Naproxen 500 mg Q12HP PRN PO 12/23/24 16:15 Methylprednisolone Sodium Succinate 60 mg Q8HR IV 12/23/24 22:00 12/27/24 05:19 60 MG Morphine Sulfate 2 mg Q4HR PRN IV 12/23/24 17:00 Acetaminophen/ Hydrocodone Bitart 1 tab Q4HPRN PRN PO 12/23/24 17:00 12/27/24 09:45 1 TAB Budesonide 0.5 mg BID NEB 12/25/24 22:00 12/27/24 06:39 0.5 MG Levothyroxine Sodium 50 mcg QAM@0600 PO 12/26/24 06:00 12/27/24 05:19 50 MCG Laboratory Results Laboratory Tests 12/21/24 17:07 12/22/24 04:50 Urinalysis Test 12/21/24 18:00 Urine Color Yellow (Yellow) Urine Clarity Clear (Clear) Urine pH 5.5 (5.0-9.0) Urine Specific [place] 1.017 (1.001-1.035) Urine Protein Negative (Negative) Urine Ketones Negative (Negative) Urine Blood Negative /uL (Negative) Urine Nitrite Negative (Negative) Urine Bilirubin Negative (Negative) Urine Urobilinogen Normal mg/dL (Negative) Urine Leukocyte Esterase Negative /uL (Negative) Urine RBC None seen /hpf (0 - 4) Urine Microscopic WBC /HPF (0-5) Urine Squamous Epithelial Cells Few /hpf (<5) Urine Bacteria None seen /hpf (None Seen) Urine Glucose Normal mg/dL (Normal) Assessment/Plan Assessment/Plan 69-year-old female with the increasing shortness of breaths for last few days found to have 1. Acute hypoxic respiratory failure secondary to acute asthma exacerbation 2. Acute asthma exacerbation 3. Chest pain secondary to above 4. Morbid obesity classI 5. Hypothyroidism, resume levothyroxine -pain meds as needed, med nebs, increase Solu-Medrol as patient's has diminished breath sounds with expiratory wheezes . -continue Pulmicort, discharge plan in next 24-48 hours. Plan discussed with: Patient Date of Service: Dec 27, 2024 Billing Provider: FABI LING MD Common Visit Codes: [id number] INP/OBS CARE(HIGH) FABI LING MD Dec 27, 2024 18:45
[2024-12-28] VITALS (13 sets, daily range): BP systolic 112–129; BP diastolic 58–86; PULSE 62–90; RESP 16–24; TEMP 98–98.4; O2SAT 91–98
--- NOTE | 2024-12-28 03:42 | ECG ---
[facility] Test Date: 2024-12-28 Test Time: 03:40:18 Pat Name: ESTEFANI MCPHERSON [facility] F Recruiting Assistant: [email or web address] : 1955 Requested By: FABI LING Order Number: [id number] Reading MD: Kareem Chisholm Measurements Intervals [place] Rate: 132 P: 0 [place]: 0 QRS: 46 QRSD: 82 T: 56 QT: 310 QTc: 460 Interpretive Statements Atrial fibrillation Ventricular premature complex Nonspecific ST depression Electronically Signed On 12-28-2024 9:07:29 PDT by Kareem Chisholm Please click the below link to view image of tracing.
[2024-12-28] MEDS: dilTIAZem 25 MG/5 ML VIAL IV ONE (04:37)
--- NOTE | 2024-12-28 07:59 | ECG ---
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
--- NOTE | 2024-12-28 09:27 | DVHINCON2 ---
Date Seen: Dec 28, 2024 Referring Physician BRISEIDA Rogers Reason for Consultation Afib History of Present Illness This is a 69-year-old female patient who presents to the emergency room with chief complaint of worsening shortness of breath. The patient reports that she has an underlying history of asthma and that asphalt was recently laid on her driveway. She reports that ever since the asphalt was laid, she has been feeling short of breath and has had wheezing lung sounds. She came to the hospital for further evaluation. Cardiology has been consulted at this time for atrial fibrillation. Initial twelve lead electrocardiogram revealed atrial fibrillation with rapid ventricular response. At the time of assessment, the patient is in a normal sinus rhythm with frequent PVCs. Patient noted to have intermittent episodes of atrial fibrillation with rapid ventricular response on potline monitor. At the time of assessment, the patient denies any cardiac symptoms such as chest pain, palpitations, shortness of breath, or dizziness. Serial troponin levels drawn during this admission have been negative. Significant past medical history includes hypertension, asthma, thyroid disease, hepatitis-C, and obesity. The patient reports that she has been scheduled for an upcoming initial cardiology visit in the outpatient setting because she noted that she was having frequent palpitations at home over the last few months. Past Medical History Past medical history reviewed. No other significant than mentioned above. Past Surgical History Tonsillectomy Family History: Hypertension G8 MOTHER, , Age: 90 Family History Family history reviewed. Social History Denies the use of tobacco, alcohol or illicit drugs. Allergies: Coded Allergies: Penicillins (Verified Allergy, Unknown, 12/21/24) Home Meds Reported Medications Naproxen (NAPROSYN TABLET) 500 Mg Tb, 500 MG GT, TAB 12/22/24 Bupropion Hcl (Bupropion Hcl) 100 Mg Tab, 100 MG PO Q8HR for 30 Days, MG 12/22/24 Lisinopril (Lisinopril) 20 Mg Tab, 20 MG PO, TAB 12/22/24 Omeprazole (Gnp Omeprazole) 20 Mg Tab, 1 TAB PO DAILY, #90 TAB 1 Refill 12/22/24 Levothyroxine Sodium (SYNTHROID TABLET) 50 Mcg Tb, 1 TAB PO DAILY, #30 TAB 5 R efills 12/22/24 Albuterol Sulfate (VENTOLIN MDI) 90 Mcg Ih, 90 MCG IN, INH 12/22/24 Home Meds Home medications reviewed. Review of Systems Constitutional: No symptom reported Ears, Nose, & Throat: No symptom reported Eyes: No symptom reported Neurological: No symptoms reported Pulmonary/Respiratory: Shortness of breath Cardiovascular: No symptom reported Gastrointestinal: No symptom reported Genitourinary: No symptom reported Musculoskeletal: No symptom reported Skin: No symptom reported Psychiatric: No symptom reported Endocrine: No symptom reported Hematologic/Lymphatic: No symptom reported Vital Signs Vital Signs Date Time Temp Pulse Resp B/P (MAP) Pulse Ox O2 Delivery O2 Flow Rate FiO2 12/28/24 09:00 98.0 83 18 119/68 (85) 95 98.0 12/28/24 07:11 Room Air 0.0 12/28/24 07:11 21 Physical Exam General Appearance: Cooperative. Obese Pulmonary/Respiratory: Clear, bilateral breaths sounds. Cardiovascular/Chest: Regular rate and rhythm. Peripheral Pulses: 2+ Radial (R). 2+ Radial (L). 2+ Pedal (R). 2+ Pedal (L) Abdominal Exam: Normal bowel sounds. Ankle Exam: Negative ankle edema Lower extremities: Negative lower extremity edema Neuro/Mental Status: A/OX4, coherent. Thoughts/Psych: Normal thought pattern. Appropriate mood and affect. Good judgment and insight. Appearance: No acute distress. Skin Exam: Normal inspection. Normal color. Warm and dry. Labs/Diagnostic Data Labs Test 12/22/24 04:50 12/21/24 23:08 12/21/24 18:00 12/21/24 17:07 Range/Units Sodium Level 139 136-145 mmol/L Potassium Level 5.0 3.5-5.1 mmol/L Chloride Level 105 98-107 mmol/L Carbon Dioxide Level 20 20-31 mmol/L Anion Gap 14 5-15 Blood Urea Nitrogen 25 H 9-23 mg/dL Creatinine 0.98 0.550-1.02 mg/dL Glomerular Filtration Rate Calc 63 >90 mL/min BUN/Creatinine Ratio 25.5 H 10.0-20.0 Serum Glucose 136 H 74-106 mg/dL Calcium Level 10.0 8.7-10.4 mg/dL Troponin I High Sensitivity < 3 L </=34 ng/L Urine Color Yellow Yellow Urine Clarity Clear Clear Urine pH 5.5 5.0-9.0 Urine Specific [place] 1.017 1.001-1.035 Urine Protein Negative Negative Urine Ketones Negative Negative Urine Blood Negative Negative /uL Urine Nitrite Negative Negative Urine Bilirubin Negative Negative Urine Urobilinogen Normal Negative mg/dL Urine Leukocyte Esterase Negative Negative /uL Urine RBC None seen 0 - 4 /hpf Urine Microscopic WBC 0-5 /HPF Urine Squamous Epithelial Cells Few <5 /hpf Urine Bacteria None seen None Seen /hpf Urine Glucose Normal Normal mg/dL White Blood Count 6.9 4.4-10.8 10^3/uL Red Blood Count 4.33 4.0-5.20 10^6/uL Hemoglobin 14.0 12.2-16.2 g/dL Hematocrit 41.7 36.0-46.0 % Mean Corpuscular Volume 96.2 80.0-100.0 fL Mean Corpuscular Hemoglobin 32.3 H 28.0-32.0 pg Mean Corpuscular Hemoglobin Concent 33.6 32.0-36.0 g/dL Red Cell Distribution Width 13.7 11.8-14.3 % Platelet Count 298 140-450 10^3/uL Mean Platelet Volume 7.7 6.9-10.8 fL Neutrophils (%) (Auto) 56.7 37.0-80.0 % Lymphocytes (%) (Auto) 26.6 10.0-50.0 % Monocytes (%) (Auto) 12.6 H 0.0-12.0 % Eosinophils (%) (Auto) 3.1 0.0-7.0 % Basophils (%) (Auto) 1.0 0.0-2.0 % Neutrophils # (Auto) 3.9 1.6-8.6 10 ^3/uL Lymphocytes # (Auto) 1.8 0.4-5.4 10 ^3/uL Monocytes # (Auto) 0.9 0-1.3 10 ^3/uL Eosinophils # (Auto) 0.2 0-0.8 10 ^3/uL Basophils # (Auto) 0.1 0-0.2 10 ^3/uL Nucleated Red Blood Cells 0.1 % Assessment Atrial fibrillation with a rapid ventricular rate, newly diagnosed, now normal sinus rhythm Rule out structural heart disease Hypertension Asthma exacerbation Thyroid disease Obesity Plan/Recommendation We will continue with the following plan/recommendations (Dr. Chisholm): * Transthoracic echocardiogram to evaluate cardiac function * ?[id number] VASc score: 3 points, HAS-BLED score: 1 point * Initiate therapeutic Lovenox while inpatient, transition to DOAC prior to discharge * Initiate beta-kojo for rate control * Consider antiarrhythmic agent * Monitor and replete electrolytes as needed, keep potassium greater than four and magnesium greater than two * Close cardiac surveillance Thank you for allowing us to care for this patient. Please call with any questions or concerns. Critical care time spent: 44 minutes This medical document was created using an electronic medical record system with voice recognition software and computerized dictation system. Although this document has been carefully reviewed, there might still be some phonetic and typographical errors. Occasional wrong-word or ``sound-alike substitutions may have occurred due to the inherent limitations of voice recognition software. These areas are purely typographical due to imperfections of the software programs and do not reflect any compromise in the patient's medical care. Please read the chart carefully and recognize, using context, where these substitutions have occurred. Plan discussed with: Patient NYHA Physical activity limitations: NA Date of Service: Dec 28, 2024 Billing Provider: NEDA PALOMINO Cardiology Common Codes: [id number] INP/OBS CARE (High) Cardiology Consultation Codes: [id number] CONSULT <45MIN NEDA PALOMINO Dec 28, 2024 09:27
[2024-12-28] MEDS: METOPROLOL TARTRATE 25 MG TAB PO ONE (13:57)
[2024-12-28 14:10] LABS: Hematocrit 39.9 % (36.0-46.0); Hemoglobin 13.1 g/dL (12.2-16.2); Mean Corpuscular Hemoglobin 31.4 pg (28.0-32.0); Mean Corpuscular Volume 95.7 fL (80.0-100.0)
[2024-12-28 14:13] LABS: Chloride 105 mmol/L (98-107); Potassium 4.9 mmol/L (3.5-5.1); Sodium 138 mmol/L (136-145)
[2024-12-28 14:14] LABS: Anion Gap 10 (5-15); Calcium 8.8 mg/dL (8.7-10.4); Carbon Dioxide 23 mmol/L (20-31)
[2024-12-28 14:19] LABS: BUN/Creatinine Ratio 29.1 (10.0-20.0); Blood Urea Nitrogen 32 mg/dL (9-23); Glucose 254 mg/dL (74-106); Triglycerides 246 mg/dL (< 150)
[2024-12-28 14:20] LABS: Magnesium 2.1 mg/dL (1.6-2.6)
[2024-12-28 14:21] LABS: Cholesterol 177 mg/dL (< 200); HDL Cholesterol 64 mg/dL (40-59)
[2024-12-28 14:40] LABS: Smudge Cells 3 /100 WBC; Total Cells Counted 100.0 (100)
[2024-12-28] MEDS: ENOXAPARIN SOD 100 MG/1 ML SYRINGE SC ONE (14:40)
[2024-12-28 16:34] LABS: Free T3 2.11 pg/mL (2.3-4.2)
[2024-12-28 16:35] LABS: Free T4 (Free Thyroxine) 1.19 ng/dL (0.89-1.76)
--- NOTE | 2024-12-28 16:54 | DVHPN2 ---
Subjective Patient is here for acute hypoxic respiratory failure secondary to acute asthma exacerbation. Overnight events noted patient went into AFib with a RVR currently on therapeutic Lovenox. 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 General Appearance: Alert, Oriented X3, Cooperative Lungs: Other (Bilateral wheezing) Cardiovascular: Regular rate, Normal S1, Normal S2 Abdomen: Normal bowel sounds, Soft, No tenderness Extremities: No edema Medications Current Medications Medications Dose Ordered Sig/Judit Route Start Time Stop Time Status Last Admin Dose Admin Nitroglycerin 0.4 mg Q5MINP PRN SL 12/21/24 20:00 12/22/24 14:41 0.4 MG Morphine Sulfate 2 mg Q30M PRN IV 12/21/24 20:30 12/22/24 06:47 2 MG Albuterol 2.5 mg Q6HPRN PRN NEB 12/21/24 20:45 12/28/24 07:11 2.5 MG Ipratropium [place] 0.5 mg Q6HPRN PRN NEB 12/21/24 20:45 12/28/24 07:11 0.5 MG Ondansetron HCl 4 mg Q4HP PRN IV 12/21/24 20:45 Acetaminophen 650 mg Q6HP PRN PO 12/21/24 20:45 Azithromycin 250 ml @ 125 mls/hr DAILY IV 12/23/24 10:00 12/28/24 09:37 125 MLS/HR Pantoprazole Sodium 40 mg DAILY@0600 PO 12/23/24 06:00 12/28/24 06:07 40 MG Diphenhydramine HCl 25 mg Q4HP PRN IV 12/22/24 20:30 12/28/24 14:03 25 MG Naproxen 500 mg Q12HP PRN PO 12/23/24 16:15 Methylprednisolone Sodium Succinate 60 mg Q8HR IV 12/23/24 22:00 12/28/24 14:04 60 MG Morphine Sulfate 2 mg Q4HR PRN IV 12/23/24 17:00 Acetaminophen/ Hydrocodone Bitart 1 tab Q4HPRN PRN PO 12/23/24 17:00 12/28/24 14:13 1 TAB Budesonide 0.5 mg BID NEB 12/25/24 22:00 12/28/24 07:11 0.5 MG Levothyroxine Sodium 50 mcg QAM@0600 PO 12/26/24 06:00 12/28/24 06:07 50 MCG Enoxaparin Sodium 100 mg Q12HR SC 12/28/24 22:00 Metoprolol Tartrate 25 mg BID PO 12/28/24 22:00 Laboratory Results Laboratory Tests 12/28/24 13:33 Chemistry Test 12/28/24 13:33 Calcium Level 8.8 mg/dL (8.7-10.4) Magnesium Level 2.1 mg/dL (1.6-2.6) Lipid panel Test 12/28/24 13:33 Cholesterol Level 177 mg/dL (< 200) HDL Cholesterol 64 mg/dL (40-59) H Triglycerides Level 246 mg/dL (< 150) H HgA1c, TSH Test 12/28/24 13:33 Thyroid Stimulating Hormone (TSH) 0.11 uIU/mL (0.55-4.78) L Urinalysis Test 12/21/24 18:00 Urine Color Yellow (Yellow) Urine Clarity Clear (Clear) Urine pH 5.5 (5.0-9.0) Urine Specific [place] 1.017 (1.001-1.035) Urine Protein Negative (Negative) Urine Ketones Negative (Negative) Urine Blood Negative /uL (Negative) Urine Nitrite Negative (Negative) Urine Bilirubin Negative (Negative) Urine Urobilinogen Normal mg/dL (Negative) Urine Leukocyte Esterase Negative /uL (Negative) Urine RBC None seen /hpf (0 - 4) Urine Microscopic WBC /HPF (0-5) Urine Squamous Epithelial Cells Few /hpf (<5) Urine Bacteria None seen /hpf (None Seen) Urine Glucose Normal mg/dL (Normal) Assessment/Plan Assessment/Plan 69-year-old female with the increasing shortness of breaths for last few days found to have 1. Acute hypoxic respiratory failure secondary to acute asthma exacerbation 2. Acute asthma exacerbation 3. New onset of AFib with a RVR currently rate controlled 4. Morbid obesity classI 5. Hypothyroidism, resume levothyroxine -beta kojo, therapeutic Lovenox we will switch to oral anticoagulation upon discharge -pain meds as needed, med nebs, i continue Solu-Medrol, . -continue Pulmicort, discharge plan in next 24 hrs Plan discussed with: Patient My Orders Orders - FABI LING MD Procedure Category Date Status Time Electrocardigram EKG 12/28/24 Resulted 03:39 Electrocardigram EKG 12/28/24 Logged 08:23 Date of Service: Dec 28, 2024 Billing Provider: FABI LING MD Common Visit Codes: [id number] INP/OBS CARE(HIGH) FABI LING MD Dec 28, 2024 16:54
[2024-12-28] MEDS: ENOXAPARIN SOD 100 MG/1 ML SYRINGE SC SCH (21:36)
[2024-12-28] MEDS: METOPROLOL TARTRATE 25 MG TAB PO SCH (21:39)
[2024-12-29] VITALS (13 sets, daily range): BP systolic 112–149; BP diastolic 60–86; PULSE 59–76; RESP 17–22; TEMP 97.6–98.3; O2SAT 93–100
--- NOTE | 2024-12-29 07:10 | ECG ---
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
--- NOTE | 2024-12-29 08:04 | ECG ---
[facility] Test Date: 2024-12-28 Test Time: 08:14:04 Pat Name: ESTEFANI MCPHERSON Department: Room: 0297T Gender: F Picker: [email or web address] : 1955 Requested By: MILAGRO PEDRO Order Number: [id number] Reading MD: Kareem Chisholm Measurements Intervals [place] Rate: 81 P: 10 MO: 118 QRS: 3 QRSD: 84 T: 41 QT: 384 QTc: 446 Interpretive Statements Sinus rhythm Multiple premature complexes, vent & supraven Borderline short MO interval Low voltage, precordial leads Electronically Signed On 12-31-2024 17:31:41 PDT by Kareem Chisholm Please click the below link to view image of tracing.
--- NOTE | 2024-12-29 08:33 | DVHSR ---
APPROVED REPORT EXAM: Two-dimensional and M-mode echocardiogram with Doppler and color Doppler. Blood Pressure: 119/68 mmHg INDICATION Eval cardiac function RISK FACTORS Height: 65, Weight: 217 DIMENSIONS LVDd4.1 (3.8-5.7cm)LA (2D)3.6 (1.9-4.0cm)Aortic Root3.0 (2.0-3.7cm) LVDs2.8 (2.5-4.0cm)LA (MM) (1.9-4.0cm)Aortic Cusp Exc1.8 (1.5-2.0cm) EF (%) 60.0 (55-70%)Rt. Atrium3.5 (1.9-4.0cm)Asc. Aorta cm IVSd1.2 (0.7-1.1cm)RV (D) (1.8-2.4cm) PWd1.3 (0.7-1.1cm) Mitral Valve MitralMitral Stenosis E wave0.78m/sMV Mean GR.mmHg A wave0.81m/sMV Peak GR.93mmHg E/A ratio1.02D MVAcm2 DECEL [id number] 1/2 [place] Aortic Valve Aortic ValveAortic Stenosis V11.00m/Kay Mean GR.4mmHg V21.44m/Kay Peak GR.8mmHg LVOT Diameter1.9 (1.8-2.4cm)Doppler AVA1.97cm2 Pulmonic Valve V20.92m/s Tricuspid Valve TR Velocity2.72m/s [id number] Conclusion Sinus rhythm. Concentric LVH. Mild left atrial enlargement. Valves are normal. EF of 60% with normal RV function. Mild TR. No pericardial effusion masses or vegetations.
--- NOTE | 2024-12-29 14:39 | DVHPN2 ---
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 Denies any cardiac symptoms at time of assessment Objective vital signs Vital Sign Date Time Temp Pulse Resp B/P (MAP) Pulse Ox O2 Delivery O2 Flow Rate FiO2 12/29/24 12:51 98.2 67 17 112/63 (79) 93 98.2 12/29/24 10:30 Nasal Cannula 3.0 12/29/24 10:30 32 Total Intake and Output 12/28/24 12/28/24 12/29/24 15:00 23:00 07:00 Intake Total 250 ml 0 ml 1880 ml Balance 250 ml 0 ml 1880 ml medications Current Medications Medications Dose Ordered Sig/Judit Route Start Time Stop Time Status Last Admin Dose Admin Nitroglycerin 0.4 mg Q5MINP PRN SL 12/21/24 20:00 12/22/24 14:41 0.4 MG Morphine Sulfate 2 mg Q30M PRN IV 12/21/24 20:30 12/22/24 06:47 2 MG Albuterol 2.5 mg Q6HPRN PRN NEB 12/21/24 20:45 12/29/24 10:28 2.5 MG Ipratropium [place] 0.5 mg Q6HPRN PRN NEB 12/21/24 20:45 12/29/24 10:28 0.5 MG Ondansetron HCl 4 mg Q4HP PRN IV 12/21/24 20:45 Acetaminophen 650 mg Q6HP PRN PO 12/21/24 20:45 Azithromycin 250 ml @ 125 mls/hr DAILY IV 12/23/24 10:00 12/29/24 09:17 125 MLS/HR Pantoprazole Sodium 40 mg DAILY@0600 PO 12/23/24 06:00 12/29/24 05:43 40 MG Diphenhydramine HCl 25 mg Q4HP PRN IV 12/22/24 20:30 12/29/24 09:18 25 MG Naproxen 500 mg Q12HP PRN PO 12/23/24 16:15 Methylprednisolone Sodium Succinate 60 mg Q8HR IV 12/23/24 22:00 12/29/24 05:43 60 MG Morphine Sulfate 2 mg Q4HR PRN IV 12/23/24 17:00 Acetaminophen/ Hydrocodone Bitart 1 tab Q4HPRN PRN PO 12/23/24 17:00 12/29/24 13:06 1 TAB Budesonide 0.5 mg BID NEB 12/25/24 22:00 12/29/24 10:28 0.5 MG Levothyroxine Sodium 50 mcg QAM@0600 PO 12/26/24 06:00 12/29/24 05:43 50 MCG Enoxaparin Sodium 100 mg Q12HR SC 12/28/24 22:00 12/29/24 09:18 100 MG Metoprolol Tartrate 25 mg BID PO 12/28/24 22:00 12/29/24 09:19 25 MG Examination: GENERAL:Normal, LUNGS:Abnormal (Diminished bilateral lower lobes), CVS:Normal, NEURO:Normal laboratory and microbiology Laboratory Tests 12/28/24 13:33 Test 12/28/24 13:33 Range/Units Serum Glucose 254 H 74-106 mg/dL Problem List/Assessment/Plan Problem List/Assessment/Plan Atrial fibrillation with a rapid ventricular rate, newly diagnosed, now normal sinus rhythm Hypertension Asthma exacerbation Thyroid disease Obesity Plan/Recommendations (Dr. Chisholm): * Transthoracic echocardiogram reveals an EF of 60% with mild left atrial enlargement * [id number] VASc score: 3 points, HAS-BLED score: 1 point * Initiate therapeutic Lovenox while inpatient, transition to DOAC prior to discharge * Continue beta-kojo for rate control * Initiate flecainide * Monitor and replete electrolytes as needed, keep potassium greater than four and magnesium greater than two * Close cardiac surveillance * Thyroid management per primary care team There is no further inpatient cardiac workup indicated at this time. The patient has been educated to follow up with Cardiology in the outpatient setting, ideally within 1-2 weeks post discharge. Thank you for allowing us to care for this patient. Please call with any questions or concerns. This medical document was created using an electronic medical record system with voice recognition software and computerized dictation system. Although this document has been carefully reviewed, there might still be some phonetic and typographical errors. Occasional wrong-word or ``sound-alike substitutions may have occurred due to the inherent limitations of voice recognition software. These areas are purely typographical due to imperfections of the software programs and do not reflect any compromise in the patient's medical care. Please read the chart carefully and recognize, using context, where these substitutions have occurred. Plan discussed with: Patient Dietary Evaluation Review Comments: Pt would benefit from increased physical activity to support overall health and functional mobility. Wt management is desirable upon D/C Expected Outcomes/Goals: gradual wt loss Date of Service: Dec 29, 2024 Billing Provider: NEDA PALOMINO Common Visit Codes: [id number] INP/OBS CARE(HIGH) NEDA PALOMINO Dec 29, 2024 14:39
--- NOTE | 2024-12-29 15:54 | DVH ---
CHEST RADIOGRAPH Indication: SOB Technique: Single frontal view of the chest was obtained Comparison: XY CHEST XRAY 1 VIEW on DOS: 12/25/24, XY CHEST PORTABLE on DOS: 12/21/24 FINDINGS: Lines and Tubes: None Lungs: No focal consolidation. Pleura: No effusion. No pneumothorax. Cardiomediastinal contours: Unremarkable Bones: No acute osseous abnormality. IMPRESSION: 1. No acute cardiopulmonary disease. 2. No significant change from 12/25/2024.
--- NOTE | 2024-12-29 17:28 | DVHPN2 ---
Reviewed: H&P Changes from previous H/P or p: No Changes General: Per HPI Objective Vitals Vital Signs Date Time Temp Pulse Resp B/P (MAP) Pulse Ox O2 Delivery O2 Flow Rate FiO2 12/29/24 17:18 98.0 64 18 133/60 (84) 96 98.0 12/29/24 10:30 Nasal Cannula 3.0 12/29/24 10:30 32 Intake/Output Intake and Output 12/29/24 07:00 Intake Total 2130 ml Balance 2130 ml Intake Oral 1880 ml IV Total 250 ml # Voids 5 # Bowel Movements 1 Exam HEENT pupils are reactive Neck is supple CV is S1-S2 irregularly irregular rate and rhythm Respiratory bilateral expiratory rhonchi GI positive bowel sound Extremity no edema 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 General Appearance: Alert, Oriented X3, Cooperative Lungs: Other (Bilateral wheezing) Cardiovascular: Regular rate, Normal S1, Normal S2 Abdomen: Normal bowel sounds, Soft, No tenderness Extremities: No edema General Appearance: Alert, Oriented X3, Cooperative Lungs: Other (Bilateral wheezing) Cardiovascular: Regular rate, Normal S1, Normal S2 Abdomen: Normal bowel sounds, Soft, No tenderness Extremities: No edema Medications Current Medications Medications Dose Ordered Sig/Judit Route Start Time Stop Time Status Last Admin Dose Admin Nitroglycerin 0.4 mg Q5MINP PRN SL 12/21/24 20:00 12/22/24 14:41 0.4 MG Morphine Sulfate 2 mg Q30M PRN IV 12/21/24 20:30 12/22/24 06:47 2 MG Albuterol 2.5 mg Q6HPRN PRN NEB 12/21/24 20:45 12/29/24 10:28 2.5 MG Ondansetron HCl 4 mg Q4HP PRN IV 12/21/24 20:45 Acetaminophen 650 mg Q6HP PRN PO 12/21/24 20:45 Azithromycin 250 ml @ 125 mls/hr DAILY IV 12/23/24 10:00 12/29/24 09:17 125 MLS/HR Pantoprazole Sodium 40 mg DAILY@0600 PO 12/23/24 06:00 12/29/24 05:43 40 MG Diphenhydramine HCl 25 mg Q4HP PRN IV 12/22/24 20:30 12/29/24 14:23 25 MG Naproxen 500 mg Q12HP PRN PO 12/23/24 16:15 Methylprednisolone Sodium Succinate 60 mg Q8HR IV 12/23/24 22:00 12/29/24 14:30 60 MG Morphine Sulfate 2 mg Q4HR PRN IV 12/23/24 17:00 Acetaminophen/ Hydrocodone Bitart 1 tab Q4HPRN PRN PO 12/23/24 17:00 12/29/24 13:06 1 TAB Budesonide 0.5 mg BID NEB 12/25/24 22:00 12/29/24 10:28 0.5 MG Levothyroxine Sodium 50 mcg QAM@0600 PO 12/26/24 06:00 12/29/24 05:43 50 MCG Enoxaparin Sodium 100 mg Q12HR SC 12/28/24 22:00 12/29/24 09:18 100 MG Metoprolol Tartrate 25 mg BID PO 12/28/24 22:00 12/29/24 09:19 25 MG Flecainide Acetate 50 mg Q12HR PO 12/29/24 22:00 UNV Ipratropium [place] 0.5 mg Q8HR NEB 12/29/24 16:15 UNV Laboratory Results Laboratory Tests 12/28/24 13:33 Urinalysis Test 12/21/24 18:00 Urine Color Yellow (Yellow) Urine Clarity Clear (Clear) Urine pH 5.5 (5.0-9.0) Urine Specific [place] 1.017 (1.001-1.035) Urine Protein Negative (Negative) Urine Ketones Negative (Negative) Urine Blood Negative /uL (Negative) Urine Nitrite Negative (Negative) Urine Bilirubin Negative (Negative) Urine Urobilinogen Normal mg/dL (Negative) Urine Leukocyte Esterase Negative /uL (Negative) Urine RBC None seen /hpf (0 - 4) Urine Microscopic WBC /HPF (0-5) Urine Squamous Epithelial Cells Few /hpf (<5) Urine Bacteria None seen /hpf (None Seen) Urine Glucose Normal mg/dL (Normal) Labs and/or images reviewed: Labs reviewed by me, Image(s) reviewed by me Assessment/Plan Assessment/Plan 69-year-old female with the increasing shortness of breaths for last few days found to have 1. Acute hypoxic respiratory failure secondary to acute asthma exacerbation 2. Acute asthma exacerbation 3. New onset of AFib with a RVR currently rate controlled 4. Morbid obesity classI 5. Hypothyroidism - levothyroxine 12/29: Patient having still shortness of breath, although no wheezing. Cardiology evaluated the patient and they want to start rate control with the DOAC for AFib, proximal. We will turn Atrovent to scheduled t.i.d., keep albuterol only as prn. Continuing on Solu-Medrol. Continue azithromycin, I can not add ceftriaxone due to penicillin allergy resulting in angioedema. We will test flu COVID rule out treatable causes. Tele Full code Plan discussed with: Patient My Orders Orders - PRISCA DYER MD Procedure Category Date Status Time Covid19 Antigen [place] LAB 12/29/24 In Process Rapid Influenza A&B LAB 12/29/24 In Process 15:31 Ipratropium Medneb PHA 12/29/24 Logged (Atrovent Medneb) 16:15 Date of Service: Dec 29, 2024 Billing Provider: PRISCA DYER MD Common Visit Codes: [id number] INP/OBS CARE(HIGH) PRISCA DYER MD Dec 29, 2024 17:27
[2024-12-29 18:06] LABS: COVID19 ANTIGEN SOFIA FIA NEGATIVE (NEGATIVE)
[2024-12-29] MEDS: IPRATROPIUM BROM 0.5 MG/2.5ML INH SOL NEB SCH (19:24)
[2024-12-29] MEDS: FLECAINIDE ACETATE 50 MG TAB PO SCH (23:21)
[2024-12-30] VITALS (14 sets, daily range): BP systolic 115–149; BP diastolic 63–83; PULSE 59–80; RESP 17–20; TEMP 97.3–98.4; O2SAT 93–100
[2024-12-30 07:50] LABS: Hematocrit 39.0 % (36.0-46.0); Hemoglobin 13.3 g/dL (12.2-16.2); Mean Corpuscular Hemoglobin 32.4 pg (28.0-32.0); Mean Corpuscular Volume 94.9 fL (80.0-100.0)
[2024-12-30 08:05] LABS: Albumin 3.8 g/dL (3.2-4.8); Alkaline Phosphatase 66 U/L (46-116); Anion Gap 11 (5-15); BUN/Creatinine Ratio 24.2 (10.0-20.0); Carbon Dioxide 25 mmol/L (20-31); Chloride 104 mmol/L (98-107); Potassium 4.5 mmol/L (3.5-5.1); Sodium 140 mmol/L (136-145); Total Protein 5.9 g/dL (5.7-8.2)
[2024-12-30 08:06] LABS: Alanine Aminotransferase 50 U/L (7-40); Blood Urea Nitrogen 23 mg/dL (9-23); Calcium 8.6 mg/dL (8.7-10.4); Glucose 132 mg/dL (74-106)
[2024-12-30 08:07] LABS: Bilirubin, Total 0.4 mg/dL (0.2-1.0)
[2024-12-30 08:39] LABS: Total Cells Counted 100.0 (100)
--- NOTE | 2024-12-30 12:32 | DVHPN2 ---
Reviewed: H&P Changes from previous H/P or p: No Changes General: Per HPI Objective Vitals Vital Signs Date Time Temp Pulse Resp B/P (MAP) Pulse Ox O2 Delivery O2 Flow Rate FiO2 12/30/24 09:50 73 12/30/24 09:00 98.3 18 134/77 (96) 95 98.3 12/30/24 08:00 Room Air* 0 21 Intake/Output Intake and Output 12/30/24 07:00 Intake Total 1600 ml Balance 1600 ml Intake Oral 1350 ml IV Total 250 ml # Voids 9 # Bowel Movements 6 Exam HEENT pupils are reactive Neck is supple CV is S1-S2 irregularly irregular rate and rhythm Respiratory bilateral expiratory rhonchi GI positive bowel sound Extremity no edema [employer] no motor deficit General Appearance: Alert, Oriented X3, Cooperative Lungs: Other (Bilateral wheezing) Cardiovascular: Regular rate, Normal S1, Normal S2 Abdomen: Normal bowel sounds, Soft, No tenderness Extremities: No edema General Appearance: Alert, Oriented X3, Cooperative Lungs: Other (Bilateral wheezing) Cardiovascular: Regular rate, Normal S1, Normal S2 Abdomen: Normal bowel sounds, Soft, No tenderness Extremities: No edema Medications Current Medications Medications Dose Ordered Sig/Judit Route Start Time Stop Time Status Last Admin Dose Admin Nitroglycerin 0.4 mg Q5MINP PRN SL 12/21/24 20:00 12/22/24 14:41 0.4 MG Morphine Sulfate 2 mg Q30M PRN IV 12/21/24 20:30 12/22/24 06:47 2 MG Albuterol 2.5 mg Q6HPRN PRN NEB 12/21/24 20:45 12/29/24 19:23 2.5 MG Ondansetron HCl 4 mg Q4HP PRN IV 12/21/24 20:45 Acetaminophen 650 mg Q6HP PRN PO 12/21/24 20:45 Azithromycin 250 ml @ 125 mls/hr DAILY IV 12/23/24 10:00 12/30/24 09:49 125 MLS/HR Pantoprazole Sodium 40 mg DAILY@0600 PO 12/23/24 06:00 12/30/24 06:07 40 MG Diphenhydramine HCl 25 mg Q4HP PRN IV 12/22/24 20:30 12/30/24 09:56 25 MG Naproxen 500 mg Q12HP PRN PO 12/23/24 16:15 Methylprednisolone Sodium Succinate 60 mg Q8HR IV 12/23/24 22:00 12/30/24 06:06 60 MG Morphine Sulfate 2 mg Q4HR PRN IV 12/23/24 17:00 Acetaminophen/ Hydrocodone Bitart 1 tab Q4HPRN PRN PO 12/23/24 17:00 12/30/24 08:45 1 TAB Budesonide 0.5 mg BID NEB 12/25/24 22:00 12/30/24 07:27 0.5 MG Levothyroxine Sodium 50 mcg QAM@0600 PO 12/26/24 06:00 12/30/24 06:06 50 MCG Enoxaparin Sodium 100 mg Q12HR SC 12/28/24 22:00 12/30/24 09:49 100 MG Metoprolol Tartrate 25 mg BID PO 12/28/24 22:00 12/30/24 09:50 25 MG Flecainide Acetate 50 mg Q12HR PO 12/29/24 22:00 12/30/24 09:49 50 MG Ipratropium [place] 0.5 mg Q8HR NEB 12/29/24 16:15 12/30/24 07:27 0.5 MG Laboratory Results Laboratory Tests 12/30/24 05:52 Chemistry Test 12/30/24 05:52 Albumin 3.8 g/dL (3.2-4.8) Calcium Level 8.6 mg/dL (8.7-10.4) L Total Protein 5.9 g/dL (5.7-8.2) LFT Test 12/30/24 05:52 Alanine Aminotransferase (ALT) 50 U/L (7-40) H Alkaline Phosphatase 66 U/L (46-116) Aspartate Amino Transferase (AST) 32 U/L (13-40) Total Bilirubin 0.4 mg/dL (0.2-1.0) Urinalysis Test 12/21/24 18:00 Urine Color Yellow (Yellow) Urine Clarity Clear (Clear) Urine pH 5.5 (5.0-9.0) Urine Specific [place] 1.017 (1.001-1.035) Urine Protein Negative (Negative) Urine Ketones Negative (Negative) Urine Blood Negative /uL (Negative) Urine Nitrite Negative (Negative) Urine Bilirubin Negative (Negative) Urine Urobilinogen Normal mg/dL (Negative) Urine Leukocyte Esterase Negative /uL (Negative) Urine RBC None seen /hpf (0 - 4) Urine Microscopic WBC /HPF (0-5) Urine Squamous Epithelial Cells Few /hpf (<5) Urine Bacteria None seen /hpf (None Seen) Urine Glucose Normal mg/dL (Normal) Labs and/or images reviewed: Labs reviewed by me, Image(s) reviewed by me Assessment/Plan Assessment/Plan 69-year-old female with the increasing shortness of breaths for last few days. here for SOB. asthma possible? 12/29: Patient having still shortness of breath, although no wheezing. Cardiology evaluated the patient and they want to start rate control with the DOAC for AFib, proximal. We will turn Atrovent to scheduled t.i.d., keep albuterol only as prn. Continuing on Solu-Medrol. Continue azithromycin, I can not add ceftriaxone due to penicillin allergy resulting in angioedema. We will test flu COVID rule out treatable causes. 12/30: Patient has no wheezing continues to have shortness of breath on azithromycin could not at 2nd antibiotic because of penicillin allergy. We will add linezolid today. Patient continues short of breath on exam she has rales bilateral, echocardiogram does show some LVH concentric. Patient probably has HFpEF, we will do trial of Lasix 40 IV 1 time today diagnosis: Acute hypoxic respiratory failure secondary to acute asthma exacerbation Acute CHF exacerbation,, HFpEF, diastolic dysfunction, possible new diagnosis Acute asthma exacerbation New onset of AFib with a RVR currently rate controlled Morbid obesity classI Hypothyroidism - levothyroxine plan: - nebs - solumedrol cont other home meds Tele Full code Plan discussed with: Patient My Orders Orders - PRISCA DYER MD Procedure Category Date Status Time Ipratropium Medneb PHA 12/29/24 In Process (Atrovent Medneb) 16:15 Date of Service: Dec 30, 2024 Billing Provider: PRISCA DYER MD Common Visit Codes: [id number] INP/OBS CARE(HIGH) PRISCA DYER MD Dec 30, 2024 12:31
[2024-12-30] MEDS: LINEZOLID 600MG/300ML 300 ML IV ONE (14:04)
[2024-12-30] MEDS: FUROSEMIDE 40 MG/4 ML VIAL IV ONE (14:06)
[2024-12-30] MEDS: LINEZOLID 600MG/300ML 300 ML IV SCH (22:03)
[2024-12-31] VITALS (11 sets, daily range): BP systolic 136–153; BP diastolic 48–90; PULSE 55–65; RESP 16–20; TEMP 97.2–97.8; O2SAT 93–98
[2024-12-31 06:47] LABS: Hematocrit 39.7 % (36.0-46.0); Hemoglobin 13.2 g/dL (12.2-16.2); Mean Corpuscular Hemoglobin 31.8 pg (28.0-32.0); Mean Corpuscular Volume 95.7 fL (80.0-100.0); Nucleated Red Blood Cells % 0.1 %
[2024-12-31 07:05] LABS: Alkaline Phosphatase 64 U/L (46-116); Anion Gap 11 (5-15); BUN/Creatinine Ratio 22.3 (10.0-20.0); Blood Urea Nitrogen 21 mg/dL (9-23); Carbon Dioxide 27 mmol/L (20-31); Chloride 102 mmol/L (98-107); Potassium 4.4 mmol/L (3.5-5.1); Sodium 140 mmol/L (136-145); Total Protein 5.8 g/dL (5.7-8.2)
[2024-12-31 07:06] LABS: Albumin 3.6 g/dL (3.2-4.8)
[2024-12-31 07:07] LABS: Bilirubin, Total 0.4 mg/dL (0.2-1.0)
[2024-12-31 07:27] LABS: Alanine Aminotransferase 49 U/L (7-40); Calcium 8.5 mg/dL (8.7-10.4); Glucose 124 mg/dL (74-106)
--- NOTE | 2024-12-31 09:58 | DVHPN2 ---
Reviewed: H&P Changes from previous H/P or p: No Changes General: Per HPI Objective Vitals Vital Signs Date Time Temp Pulse Resp B/P (MAP) Pulse Ox O2 Delivery O2 Flow Rate FiO2 12/31/24 09:00 97.8 58 17 153/90 (111) 93 97.8 12/31/24 07:10 Room Air 0.0 12/31/24 07:10 21 Intake/Output Intake and Output 12/31/24 07:00 Intake Total 1930 ml Output Total 7 ml Balance 1923 ml Intake Oral 1380 ml IV Total 550 ml Stool Total 7 ml # Voids 3 # Bowel Movements 5 Exam HEENT pupils are reactive Neck is supple CV is S1-S2 irregularly irregular rate and rhythm Respiratory bilateral expiratory rhonchi GI positive bowel sound 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 General Appearance: Alert, Oriented X3, Cooperative Lungs: Other (Bilateral wheezing) Cardiovascular: Regular rate, Normal S1, Normal S2 Abdomen: Normal bowel sounds, Soft, No tenderness Extremities: No edema General Appearance: Alert, Oriented X3, Cooperative Lungs: Other (Bilateral wheezing) Cardiovascular: Regular rate, Normal S1, Normal S2 Abdomen: Normal bowel sounds, Soft, No tenderness Extremities: No edema Medications Current Medications Medications Dose Ordered Sig/Judit Route Start Time Stop Time Status Last Admin Dose Admin Nitroglycerin 0.4 mg Q5MINP PRN SL 12/21/24 20:00 12/22/24 14:41 0.4 MG Albuterol 2.5 mg Q6HPRN PRN NEB 12/21/24 20:45 12/29/24 19:23 2.5 MG Ondansetron HCl 4 mg Q4HP PRN IV 12/21/24 20:45 Acetaminophen 650 mg Q6HP PRN PO 12/21/24 20:45 Azithromycin 250 ml @ 125 mls/hr DAILY IV 12/23/24 10:00 12/30/24 09:49 125 MLS/HR Pantoprazole Sodium 40 mg DAILY@0600 PO 12/23/24 06:00 12/31/24 06:07 40 MG Diphenhydramine HCl 25 mg Q4HP PRN IV 12/22/24 20:30 12/31/24 06:07 25 MG Naproxen 500 mg Q12HP PRN PO 12/23/24 16:15 Methylprednisolone Sodium Succinate 60 mg Q8HR IV 12/23/24 22:00 12/31/24 06:07 60 MG Morphine Sulfate 2 mg Q4HR PRN IV 12/23/24 17:00 Acetaminophen/ Hydrocodone Bitart 1 tab Q4HPRN PRN PO 12/23/24 17:00 12/31/24 06:21 1 TAB Budesonide 0.5 mg BID NEB 12/25/24 22:00 12/31/24 07:19 0.5 MG Levothyroxine Sodium 50 mcg QAM@0600 PO 12/26/24 06:00 12/31/24 06:07 50 MCG Enoxaparin Sodium 100 mg Q12HR SC 12/28/24 22:00 12/30/24 22:02 100 MG Metoprolol Tartrate 25 mg BID PO 12/28/24 22:00 12/30/24 22:01 25 MG Flecainide Acetate 50 mg Q12HR PO 12/29/24 22:00 12/30/24 22:00 50 MG Ipratropium [place] 0.5 mg Q8HR NEB 12/29/24 16:15 12/31/24 07:10 0.5 MG Linezolid 300 ml @ 150 mls/hr Q12HR IV 12/30/24 22:00 12/30/24 22:03 150 MLS/HR Laboratory Results Laboratory Tests 12/31/24 05:21 Chemistry Test 12/31/24 05:21 Albumin 3.6 g/dL (3.2-4.8) Calcium Level 8.5 mg/dL (8.7-10.4) L Total Protein 5.8 g/dL (5.7-8.2) LFT Test 12/31/24 05:21 Alanine Aminotransferase (ALT) 49 U/L (7-40) H Alkaline Phosphatase 64 U/L (46-116) Aspartate Amino Transferase (AST) 29 U/L (13-40) Total Bilirubin 0.4 mg/dL (0.2-1.0) Urinalysis Test 12/21/24 18:00 Urine Color Yellow (Yellow) Urine Clarity Clear (Clear) Urine pH 5.5 (5.0-9.0) Urine Specific [place] 1.017 (1.001-1.035) Urine Protein Negative (Negative) Urine Ketones Negative (Negative) Urine Blood Negative /uL (Negative) Urine Nitrite Negative (Negative) Urine Bilirubin Negative (Negative) Urine Urobilinogen Normal mg/dL (Negative) Urine Leukocyte Esterase Negative /uL (Negative) Urine RBC None seen /hpf (0 - 4) Urine Microscopic WBC /HPF (0-5) Urine Squamous Epithelial Cells Few /hpf (<5) Urine Bacteria None seen /hpf (None Seen) Urine Glucose Normal mg/dL (Normal) Labs and/or images reviewed: Labs reviewed by me, Image(s) reviewed by me Assessment/Plan Assessment/Plan 69-year-old female with the increasing shortness of breaths for last few days. here for SOB. asthma possible? 12/29: Patient having still shortness of breath, although no wheezing. Cardiology evaluated the patient and they want to start rate control with the DOAC for AFib, proximal. We will turn Atrovent to scheduled t.i.d., keep albuterol only as prn. Continuing on Solu-Medrol. Continue azithromycin, I can not add ceftriaxone due to penicillin allergy resulting in angioedema. We will test flu COVID rule out treatable causes. 12/30: Patient has no wheezing continues to have shortness of breath on azithromycin could not at 2nd antibiotic because of penicillin allergy. We will add linezolid today. Patient continues short of breath on exam she has rales bilateral, echocardiogram does show some LVH concentric. Patient probably has HFpEF, we will do trial of Lasix 40 IV 1 time today 12/31: Patient is still having rales, off the oxygen now with yesterday's trial of Lasix. We will start Lasix IV 40 daily, trial of BiPAP 10/17 at night 4 hours prior to sleep. Stop Solu-Medrol, change nebs to prn.. Patient will need appropriate cardiology follow up and PCP follow up. We will likely discharge with Lasix 20 p.o. daily. Patient has HFpEF diagnosis: Acute hypoxic respiratory failure secondary to acute asthma exacerbation Acute CHF exacerbation,, HFpEF, diastolic dysfunction, possible new diagnosis Acute asthma exacerbation New onset of AFib with a RVR currently rate controlled Morbid obesity classI Hypothyroidism - levothyroxine plan: - nebs - solumedrol cont other home meds - iv lasix trial Tele Full code Plan discussed with: Patient My Orders Orders - PRISCA DYER MD Procedure Category Date Status Time Linezolid 600mg/300ml PHA 12/30/24 In Process (Zyvox) 22:00 Date of Service: Dec 31, 2024 Billing Provider: PRISCA DYER MD Common Visit Codes: [id number] INP/OBS CARE(HIGH) PRISCA DYER MD Dec 31, 2024 09:58
[2024-12-31] MEDS ORDERED: IPRATROPIUM BROM 0.5 MG/2.5ML INH SOL NEB PRN (10:15)
[2024-12-31] MEDS ORDERED: BUDESONIDE (INHALATION) 0.5 MG/2 ML NEB NEB PRN (10:15)
[2024-12-31] MEDS: FUROSEMIDE 40 MG/4 ML VIAL IV ONE (13:03)
[2025-01-01] VITALS (10 sets, daily range): BP systolic 124–145; BP diastolic 68–89; PULSE 51–70; RESP 16–19; TEMP 97–97.7; O2SAT 93–98
[2025-01-01] MEDS: LINEZOLID 600MG/300ML 300 ML IV SCH (02:45)
[2025-01-01 06:35] LABS: Albumin 3.4 g/dL (3.2-4.8); Alkaline Phosphatase 68 U/L (46-116); Anion Gap 8 (5-15); BUN/Creatinine Ratio 25.8 (10.0-20.0); Bilirubin, Total 0.4 mg/dL (0.2-1.0); Chloride 102 mmol/L (98-107); Glucose 94 mg/dL (74-106); Potassium 4.2 mmol/L (3.5-5.1); Sodium 141 mmol/L (136-145)
[2025-01-01 06:38] LABS: Alanine Aminotransferase 54 U/L (7-40); Blood Urea Nitrogen 25 mg/dL (9-23); Calcium 8.1 mg/dL (8.7-10.4); Carbon Dioxide 31 mmol/L (20-31); Total Protein 5.4 g/dL (5.7-8.2)
[2025-01-01] MEDS: FUROSEMIDE 40 MG/4 ML VIAL IV SCH ×2 (09:54→18:29)
--- NOTE | 2025-01-01 10:33 | DVHPN2 ---
Reviewed: H&P Changes from previous H/P or p: No Changes General: Per HPI Objective Vitals Vital Signs Date Time Temp Pulse Resp B/P (MAP) Pulse Ox O2 Delivery O2 Flow Rate FiO2 01/01/25 09:54 124/74 01/01/25 09:53 56 01/01/25 09:00 96 Room Air 0.0 01/01/25 09:00 21 01/01/25 09:00 97.4 19 97.4 Intake/Output Intake and Output 01/01/25 06:59 Intake Total 1780 ml Balance 1780 ml Intake Oral 1480 ml IV Total 300 ml # Voids 6 # Bowel Movements 1 Exam HEENT pupils are reactive Neck is supple CV is S1-S2 irregularly irregular rate and rhythm Respiratory bilateral expiratory rhonchi GI positive bowel sound 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 General Appearance: Alert, Oriented X3, Cooperative Lungs: Other (Bilateral wheezing) Cardiovascular: Regular rate, Normal S1, Normal S2 Abdomen: Normal bowel sounds, Soft, No tenderness Extremities: No edema General Appearance: Alert, Oriented X3, Cooperative Lungs: Other (Bilateral wheezing) Cardiovascular: Regular rate, Normal S1, Normal S2 Abdomen: Normal bowel sounds, Soft, No tenderness Extremities: No edema Medications Current Medications Medications Dose Ordered Sig/Judit Route Start Time Stop Time Status Last Admin Dose Admin Nitroglycerin 0.4 mg Q5MINP PRN SL 12/21/24 20:00 12/22/24 14:41 0.4 MG Albuterol 2.5 mg Q6HPRN PRN NEB 12/21/24 20:45 12/29/24 19:23 2.5 MG Ondansetron HCl 4 mg Q4HP PRN IV 12/21/24 20:45 Acetaminophen 650 mg Q6HP PRN PO 12/21/24 20:45 Azithromycin 250 ml @ 125 mls/hr DAILY IV 12/23/24 10:00 01/01/25 09:52 125 MLS/HR Pantoprazole Sodium 40 mg DAILY@0600 PO 12/23/24 06:00 01/01/25 06:31 40 MG Diphenhydramine HCl 25 mg Q4HP PRN IV 12/22/24 20:30 01/01/25 09:52 25 MG Naproxen 500 mg Q12HP PRN PO 12/23/24 16:15 Morphine Sulfate 2 mg Q4HR PRN IV 12/23/24 17:00 Acetaminophen/ Hydrocodone Bitart 1 tab Q4HPRN PRN PO 12/23/24 17:00 01/01/25 09:54 1 TAB Levothyroxine Sodium 50 mcg QAM@0600 PO 12/26/24 06:00 01/01/25 06:31 50 MCG Enoxaparin Sodium 100 mg Q12HR SC 12/28/24 22:00 01/01/25 09:53 100 MG Metoprolol Tartrate 25 mg BID PO 12/28/24 22:00 01/01/25 09:53 25 MG Flecainide Acetate 50 mg Q12HR PO 12/29/24 22:00 01/01/25 09:52 50 MG Budesonide 0.5 mg BID PRN NEB 12/31/24 10:15 Ipratropium [place] 0.5 mg Q6HPRN PRN NEB 12/31/24 10:15 Linezolid 300 ml @ 150 mls/hr Q12HR@0300,1500 IV 01/01/25 03:00 01/01/25 02:45 150 MLS/HR Furosemide 40 mg BID IV 01/01/25 22:00 UNV Laboratory Results Laboratory Tests 12/31/24 05:21 01/01/25 05:21 Chemistry Test 01/01/25 05:21 Albumin 3.4 g/dL (3.2-4.8) Calcium Level 8.1 mg/dL (8.7-10.4) L Total Protein 5.4 g/dL (5.7-8.2) L LFT Test 01/01/25 05:21 Alanine Aminotransferase (ALT) 54 U/L (7-40) H Alkaline Phosphatase 68 U/L (46-116) Aspartate Amino Transferase (AST) 36 U/L (13-40) Total Bilirubin 0.4 mg/dL (0.2-1.0) Urinalysis Test 12/21/24 18:00 Urine Color Yellow (Yellow) Urine Clarity Clear (Clear) Urine pH 5.5 (5.0-9.0) Urine Specific [place] 1.017 (1.001-1.035) Urine Protein Negative (Negative) Urine Ketones Negative (Negative) Urine Blood Negative /uL (Negative) Urine Nitrite Negative (Negative) Urine Bilirubin Negative (Negative) Urine Urobilinogen Normal mg/dL (Negative) Urine Leukocyte Esterase Negative /uL (Negative) Urine RBC None seen /hpf (0 - 4) Urine Microscopic WBC /HPF (0-5) Urine Squamous Epithelial Cells Few /hpf (<5) Urine Bacteria None seen /hpf (None Seen) Urine Glucose Normal mg/dL (Normal) Labs and/or images reviewed: Labs reviewed by me, Image(s) reviewed by me Assessment/Plan Assessment/Plan 69-year-old female with the increasing shortness of breaths for last few days. here for SOB. asthma possible? 12/29: Patient having still shortness of breath, although no wheezing. Cardiology evaluated the patient and they want to start rate control with the DOAC for AFib, proximal. We will turn Atrovent to scheduled t.i.d., keep albuterol only as prn. Continuing on Solu-Medrol. Continue azithromycin, I can not add ceftriaxone due to penicillin allergy resulting in angioedema. We will test flu COVID rule out treatable causes. 12/30: Patient has no wheezing continues to have shortness of breath on azithromycin could not at 2nd antibiotic because of penicillin allergy. We will add linezolid today. Patient continues short of breath on exam she has rales bilateral, echocardiogram does show some LVH concentric. Patient probably has HFpEF, we will do trial of Lasix 40 IV 1 time today 12/31: Patient is still having rales, off the oxygen now with yesterday's trial of Lasix. We will start Lasix IV 40 daily, trial of BiPAP 10/17 at night 4 hours prior to sleep. Stop Solu-Medrol, change nebs to prn.. Patient will need appropriate cardiology follow up and PCP follow up. We will likely discharge with Lasix 20 p.o. daily. Patient has HFpEF 01/01: Patient is still having rales and right lower extremity with trace edema. Increasing furosemide to 40 IV b.i.d.,. No TABATHA, little bit of mild alkalosis on the BNP. Fluid status not completely clear and not matching with BN M P. Tomorrow we will get another BNP with BNP BM P. stop BiPAP.. Patient will likely need until Thursday and rest of the week off to recuperate. diagnosis: Acute hypoxic respiratory failure secondary to acute asthma exacerbation Acute CHF exacerbation,, HFpEF, diastolic dysfunction, possible new diagnosis Acute asthma exacerbation New onset of AFib with a RVR currently rate controlled Morbid obesity classI Hypothyroidism - levothyroxine plan: - nebs - solumedrol cont other home meds - iv lasix trial Tele Full code Plan discussed with: Patient My Orders Orders - PRISCA DYER MD Procedure Category Date Status Time Linezolid 600mg/300ml PHA 01/01/25 In Process (Zyvox) 03:00 Furosemide Injection PHA 01/01/25 Logged (Lasix Injection) 22:00 B-Type Natriuretic LAB 01/02/25 Verified Peptide 04:00 Date of Service: Jan 01, 2025 Billing Provider: PRISCA DYER MD Common Visit Codes: [id number] INP/OBS CARE(HIGH) PRISCA DYER MD Jan 01, 2025 10:33
[2025-01-01] MEDS: ONDANSETRON HCL 4 MG/2 ML VIAL IV PRN (20:24)
[2025-01-02] MEDS: HYDROcodone-ACET 5/325MG TAB PO ONE (00:27)
[2025-01-02] MEDS: MELATONIN 5 MG TAB PO ONE (00:28)
[2025-01-02 01:00] VITALS: BP 131/77; PULSE 55; RESP 18; TEMP 97.2; O2SAT 93
[2025-01-02 05:00] VITALS: BP 116/52; PULSE 60; RESP 18; TEMP 97.2; O2SAT 92
[2025-01-02 07:22] VITALS: O2SAT 90
[2025-01-02 08:07] LABS: Potassium 3.7 mmol/L (3.5-5.1)
[2025-01-02 08:08] LABS: Anion Gap 10 (5-15)
[2025-01-02 08:09] LABS: Calcium 8.3 mg/dL (8.7-10.4); Carbon Dioxide 31 mmol/L (20-31); Chloride 94 mmol/L (98-107); Sodium 135 mmol/L (136-145)
[2025-01-02 08:13] LABS: BUN/Creatinine Ratio 18.4 (10.0-20.0); Blood Urea Nitrogen 18 mg/dL (9-23); Glucose 93 mg/dL (74-106)
[2025-01-02 09:00] VITALS: BP 132/69; PULSE 60; RESP 18; TEMP 98.3; O2SAT 92
[2025-01-02] MEDS ORDERED: FLE50T PO (09:27)
[2025-01-02] MEDS ORDERED: MET25T PO (09:27)
[2025-01-02] MEDS ORDERED: FURO1TAB33 PO (09:27)
[2025-01-02] MEDS ORDERED: APIX5TAB PO (09:27)
--- NOTE | 2025-01-02 09:30 | DVHDS2 ---
Discharge Summary Date of Admission Dec 21, 2024 at 19:57 Date of Discharge: Jan 02, 2025 Labs/Diagnostic Data: Laboratory Results Test 01/02/25 07:00 01/01/25 05:21 12/31/24 05:21 12/30/24 05:52 Sodium Level 135 mmol/L (136-145) Potassium Level 3.7 mmol/L (3.5-5.1) Chloride Level 94 mmol/L (98-107) Carbon Dioxide Level 31 mmol/L (20-31) Anion Gap 10 (5-15) Blood Urea Nitrogen 18 mg/dL (9-23) Creatinine 0.98 mg/dL (0.550-1.02) Glomerular Filtration Rate Calc 63 mL/min (>90) BUN/Creatinine Ratio 18.4 (10.0-20.0) Serum Glucose 93 mg/dL (74-106) Calcium Level 8.3 mg/dL (8.7-10.4) B-Type Natriuretic Peptide 34.43 pg/mL (0-100) Total Bilirubin 0.4 mg/dL (0.2-1.0) Aspartate Amino Transferase (AST) 36 U/L (13-40) Alanine Aminotransferase (ALT) 54 U/L (7-40) Alkaline Phosphatase 68 U/L (46-116) Total Protein 5.4 g/dL (5.7-8.2) Albumin 3.4 g/dL (3.2-4.8) White Blood Count 12.0 10^3/uL (4.4-10.8) Red Blood Count 4.15 10^6/uL (4.0-5.20) Hemoglobin 13.2 g/dL (12.2-16.2) Hematocrit 39.7 % (36.0-46.0) Mean Corpuscular Volume 95.7 fL (80.0-100.0) Mean Corpuscular Hemoglobin 31.8 pg (28.0-32.0) Mean Corpuscular Hemoglobin Concent 33.2 g/dL (32.0-36.0) Red Cell Distribution Width 13.6 % (11.8-14.3) Platelet Count 298 10^3/uL (140-450) Mean Platelet Volume 8.1 fL (6.9-10.8) Neutrophils (%) (Auto) 85.2 % (37.0-80.0) Lymphocytes (%) (Auto) 8.6 % (10.0-50.0) Monocytes (%) (Auto) 6.0 % (0.0-12.0) Eosinophils (%) (Auto) 0.0 % (0.0-7.0) Basophils (%) (Auto) 0.2 % (0.0-2.0) Neutrophils # (Auto) 10.2 10 ^3/uL (1.6-8.6) Lymphocytes # (Auto) 1.0 10 ^3/uL (0.4-5.4) Monocytes # (Auto) 0.7 10 ^3/uL (0-1.3) Eosinophils # (Auto) 0 10 ^3/uL (0-0.8) Basophils # (Auto) 0 10 ^3/uL (0-0.2) Nucleated Red Blood Cells 0.1 % Differential Total Cells Counted 100.0 (100) Neutrophils % (Manual) 82 (37.0-80.0) Band Neutrophils % (Manual) 1 Lymphocytes % (Manual) 13 (10.0-50.0) Monocytes % (Manual) 4 (0-12) Eosinophils % (Manual) 0 (0-7) Basophils % (Manual) 0 (0.0-2.0) Metamyelocytes % (manual) 0 Myelocytes % (Manual) 0 Promyelocytes % (Manual) 0 Blast Cells % (Manual) 0 Reactive Lymphocytes 0 Platelet Estimate Adequate Test 12/29/24 16:55 12/28/24 13:33 12/21/24 23:08 12/21/24 18:00 Influenza Type A Antigen Negative (Negative) Influenza Type B Antigen Negative (Negative) SARS-CoV-2 Antigen (Rapid) Negative (NEGATIVE) Smudge Cells 3 /100 WBC Magnesium Level 2.1 mg/dL (1.6-2.6) Triglycerides Level 246 mg/dL (< 150) Cholesterol Level 177 mg/dL (< 200) LDL Cholesterol 73 mg/dL (< 100) HDL Cholesterol 64 mg/dL (40-59) Thyroid Stimulating Hormone (TSH) 0.11 uIU/mL (0.55-4.78) Free Thyroxine (T4) Calculated 1.19 ng/dL (0.89-1.76) Free Triiodothyronine (T3) pg/mL 2.11 pg/mL (2.3-4.2) Troponin I High Sensitivity < 3 ng/L (</=34) Urine Color Yellow (Yellow) Urine Clarity Clear (Clear) Urine pH 5.5 (5.0-9.0) Urine Specific [place] 1.017 (1.001-1.035) Urine Protein Negative (Negative) Urine Ketones Negative (Negative) Urine Blood Negative /uL (Negative) Urine Nitrite Negative (Negative) Urine Bilirubin Negative (Negative) Urine Urobilinogen Normal mg/dL (Negative) Urine Leukocyte Esterase Negative /uL (Negative) Urine RBC None seen /hpf (0 - 4) Urine Microscopic WBC /HPF (0-5) Urine Squamous Epithelial Cells Few /hpf (<5) Urine Bacteria None seen /hpf (None Seen) Urine Glucose Normal mg/dL (Normal) Other Laboratory Tests 01/02/25 07:00 12/31/24 05:21 Brief Hx & Hospital Course: Final diagnoses: Acute hypoxic respiratory failure Asthma exacerbation Chronic respiratory failure No home O2 History of asthma No pneumonia New onset atrial fibrillation with rapid ventricular response Acute CHF exacerbation with preserved ejection fraction Morbid obesity Hypothyroidism 69-year-old female who was admitted for acute respiratory failure and asthma exacerbation and was treated with oxygen and med neb treatments and IV steroids She had significant wheezing on admission with hypoxia She improved slowly however she developed atrial fibrillation with rapid ventricular response The echocardiogram showed diastolic dysfunction with preserved ejection fraction She was given Lasix She was started on Lovenox She was given metoprolol and flecainide to control her rhythm Now she is doing better We will switch her from Lovenox to Eliquis Discharged home Continue metoprolol and flecainide at home Continue Eliquis Add Lasix 20 mg daily Resume other home medications Discontinue lisinopril Follow up with the primary care physician as soon as possible Condition at Discharge: Stable Final Diagnosis/Problems List Acute hypoxic respiratory failure Asthma exacerbation Chronic respiratory failure No home O2 History of asthma No pneumonia New onset atrial fibrillation with rapid ventricular response Acute CHF exacerbation with preserved ejection fraction Morbid obesity Hypothyroidism Discharge Disposition: Home SNF Discharge Will this Physician continue t: No Discharge Instruct/Medications Scheduled Apixaban Base (Eliquis), 5 MG PO BID Bupropion Hcl (Bupropion Hcl), 100 MG PO Q8HR, (Reported) Flecainide Acetate (Tambocor Tablet), 50 MG PO Q12HR Furosemide (Lasix), 1 TAB PO DAILY Levothyroxine Sodium (Synthroid Tablet), 1 TAB PO DAILY, (Reported) Metoprolol Tartrate (Lopressor), 25 MG PO BID Omeprazole (Gnp Omeprazole), 1 TAB PO DAILY, (Reported) Miscellaneous Medications Albuterol Sulfate (Ventolin Mdi), 90 MCG IN, (Reported) Lisinopril (Lisinopril), 20 MG PO, (Reported) Naproxen (Naprosyn Tablet), 500 MG GT, (Reported) Discharge Statement: "Patient was advised to return to the ER or call 911 if any headaches, dizziness, shortness of breath, chest pain, abdominal pain, bleeding, fevers, or worsening of medical condition. Patient was counseled about treatment plan, medications, possible side effects, patientverbalized understanding. All questions were answered to the best of my ability. This discharge took greater then 30 minutes in planning, reviewing documentation, counseling the patient, and discussing with other team members." ASSESSMENT ASSESSMENT Assessment Date of Service: Jan 02, 2025 Billing Provider: KATY RESENDIZ MD Common Visit Codes: NOT BILLABLE KATY RESENDIZ MD Jan 02, 2025 09:30
[2025-01-02 09:44] VITALS: BP 132/69; PULSE 60; RESP 18; TEMP 98.3; O2SAT 92
[2025-01-02] MEDS ORDERED: APIXABAN 5 MG TAB PO SCH (10:00)
[2025-01-02] MEDS ORDERED: MELATONIN 5 MG TAB PO ONE (22:00)
== END 2025-01-02 11:28 | disposition home or self-care (01) | DRG 291 ==
LOC: ER 14:54 → OVERFLOW 19:57 → TELE-WESTW 19:58
PROVIDERS: ADMIT Internal Medicine Geriatric Medicine; ATTEND Internal Medicine Geriatric Medicine
PROC: 5A09357 Assistance with Respiratory Ventilation, Less than 24 Consecutive Hours, Continuous Positive Airway Pressure (ICD-10-PCS; principal; 2024-12-31)
PROC: 5A09357 Assistance with Respiratory Ventilation, Less than 24 Consecutive Hours, Continuous Positive Airway Pressure (ICD-10-PCS; 2025-01-02)
DX: I11.0 Hypertensive heart disease with heart failure (principal); I50.33 Acute on chronic diastolic (congestive) heart failure; J96.21 Acute and chronic respiratory failure with hypoxia; J45.901 Unspecified asthma with (acute) exacerbation; J44.1 Chronic obstructive pulmonary disease with (acute) exacerbation; Z20.822 Contact with and (suspected) exposure to COVID-19; E66.01 Morbid (severe) obesity due to excess calories; E03.9 Hypothyroidism, unspecified; I48.91 Unspecified atrial fibrillation; I49.3 Ventricular premature depolarization; Z88.0 Allergy status to penicillin; Z82.49 Family history of ischemic heart disease and other diseases of the circulatory system; Z79.01 Long term (current) use of anticoagulants; Z79.899 Other long term (current) drug therapy; Z68.33 Body mass index [BMI] 33.0-33.9, adult
CPT/HCPCS: 36415; 71045; 80048; 80053; 80061; 81001; 83735; 83880; 84439; 84443; 84481; 84484; 85007; 85025; 85027; 87426; 87804; 93005; 93306; 94640; 96374; 99291; G0378; J2405